=== PATIENT | female | born 1960 | race Caucasian/White ===

== ENCOUNTER 2016-11-27 03:51 | Emergency (ER) | payer OTHER ==
[~2016-11-27 03:51] MED LIST: AMOXIL500 MG PO; CALCIUM + D 6001 TAB PO; CATAPRES 0.1MG0.1 MG PO; CLONAZEPAM1 MG PO; ENDOCET 325 MG-1 TA1 PO; FLEXERIL10 MG PO; ISENTRESS400 MG PO; LAMOTRIGINE25 MG PO; LEVOTHROID0.125 MG PO; LEVOTHYROXIN0.075 M1 PO; LIORESAL 10MG T10 MG PO; LITHIUM CARBON150 MG PO; LITHIUM CARBON300 M3 PO; MELOXICAM15 MG PO; NORCO 325 MG-51 TAB PO; PERCOCET 325 MG1 TA2 PO; RISPERIDONE1 MG PO; TRUVADA 200 MG-1 TAB PO; TYLENOL #31 TAB PO; TYLENOL XSTR500 MG PO; VICODIN5-300 PO; VITAMIN B COMPL1 CAP PO; VITAMIN B12500 MCG PO; ZOVIRAX400 MG PO
[2016-11-27 04:02] VITALS: BP 152/72
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
[2016-11-27] MEDS ORDERED: CHERATUSSIN AC118 M1 PO (04:57)
[2016-11-27] MEDS ORDERED: ZITHROMAX250 M2 PO (04:57)
[2016-11-27] MEDS ORDERED: PROAIR HFA8.5 GM INH (04:57)
[2016-11-27] MEDS ORDERED: MEDROL4 M2 PO (04:57)
== END 2016-11-27 05:15 ==
LOC: ERH 03:51
DX: J40 Bronchitis, not specified as acute or chronic (principal)
CPT/HCPCS: 1263; 1395

== ENCOUNTER 2016-12-02 23:46 | Emergency (ER) | payer OTHER ==
[~2016-12-02 23:46] MED LIST changes: +CHERATUSSIN AC118 M1 PO; +MEDROL4 M2 PO; +PROAIR HFA8.5 GM INH; +ZITHROMAX250 M2 PO
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
[2016-12-03 01:15] VITALS: BP 129/60
[2016-12-03] MEDS ORDERED: VIBRAMYCIN100 MG PO (01:34)
== END 2016-12-03 01:46 ==
LOC: ERH 23:46
DX: S70.362A Insect bite (nonvenomous), left thigh, initial encounter (principal); W57.XXXA Bitten or stung by nonvenomous insect and other nonvenomous arthropods, initial encounter; Y92.9 Unspecified place or not applicable; Y93.9 Activity, unspecified

== ENCOUNTER 2016-12-10 11:20 | Inpatient (IN) | payer OTHER ==
[~2016-12-10] VITALS: Ht 165.1 cm; Wt 65.9 kg
[~2016-12-10 11:20] MED LIST changes: +VIBRAMYCIN100 MG PO
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
--- NOTE | 2016-12-10 12:15 | NUR ---
DALJIT CROWE ATTEMPTED BLOOD DRAW X 2 TO BOTH R AND L AC WITH NO SUCCESS NOTED. THIS RN OBTAINED BLOOD WORK VIA BUTTERFLY L WRIST AREA. PT DIFFICULT STICK AND MOVED DURING ALL ATTEMPTS. SST AND LAVENDAR TOP TUBES SENT TO LAB AT THIS TIME. PT AMBULATORY TO BATHROOM FOR URINE SPECIMEN.
[2016-12-10 12:28] LABS: ABSOLUTE BASOPHIL COUNT 0 /CUMM (0.0-0.2); ABSOLUTE EOSINOPHIL COUNT 0.3 /CUMM (0.0-0.7); ABSOLUTE GRANULOCYTE CT 6.6 /CUMM (1.4-6.5); ABSOLUTE LYMPH COUNT 2.1 /CUMM (1.2-3.4); ABSOLUTE MONOCYTE COUNT 0.9 /CUMM (0.10-0.60); BASOPHIL % 0.2 % (0.0-2.0); EOSINOPHIL % 2.8 % (0-5); GRANULOCYTE % 67.1 % (42.2-75.2); HEMATOCRIT 38.3 % (37-47); MEAN CORPUSCULAR HGB 31.7 PG (27.0-31.0); MEAN CORPUSCULAR VOLUME 95.8 FL (81.0-99.0); MEAN PLATELET VOLUME 9.6 FL (7.4-10.4); RBC DISTRIBUTION WIDTH 13.5 % (11.5-14.5); RED BLOOD CELL CT 3.99 /CUMM (4.20-5.40)
--- NOTE | 2016-12-10 12:28 | NUR ---
SPOKE WITH RAYO IN [employer] FOR FINGER FOOD REGULAR LUNCH TRAY
--- NOTE | 2016-12-10 12:29 | NUR ---
PATIENT FRIEND NGA ALLOWED TO VISIT WITH PATIENT AT THIS TIME.
[2016-12-10 12:46] LABS: WHITE BLOOD CELL COUNT 9.8 /CUMM (4.8-10.8)
[2016-12-10 12:47] LABS: PLATELET COUNT 176 /CUMM (130-400)
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
[2016-12-10 13:35] LABS: LITHIUM 0.4 mmol/L (0.6-1.2)
--- NOTE | 2016-12-10 13:39 | NUR ---
AIRWORTHINESS INSPECTOR NANCY AND THIS RN AT BEDSIDE TO DISCUSS WITH PATIENT PLAN FOR ADMISSION TO [facility]PS AND TO ATTEMPT TO MEDICATE PATIENT WITH ZYDIS PER ORDERS OF PSYCHIATRIST. PT REFUSING TO TAKE PO MEDS AT THIS TIME, STATING SHE WILL ONLY TAKE "LITHIUM" AND SHE WILL "ONLY TAKE MEDICATIONS PRESCRIBED" BY HER OWN PSYCHIATRIST. PT AGREES THAT SHE WILL EAT HER LUNCH, REMAIN IN ROOM AND REMAIN CALM AT THIS TIME. SITTER REMAINS AT DOOR. WILL CONTINUE TO MONITOR.
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
--- NOTE | 2016-12-10 14:35 | NUR ---
PT SLEEPING AT THIS TIME WITH REGULAR RESPIRATIONS. SITTER REMAINS AT DOOR
--- NOTE | 2016-12-10 14:43 | NUR ---
ALEXIA CRUZ IN CASE MANAGEMENT PATIENT IS 2ND IN LINE TO GO TO CPS.
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
--- NOTE | 2016-12-10 17:34 | NUR ---
NEW DINNER TRAY GLUTEN FREE PIZZA ORDERED.
--- NOTE | 2016-12-10 17:58 | NUR ---
NEW TRAY OF GLUTEN FREE PIZZA ARRIVED. PT UPSET, AGITATED, EASILY SETTLED BY LISTENING TO PT, PT AWARE THAT WE WERE NOT AWARE OF GLUTEN ALLERGY, BUT NOW IS DOCUMENTED IN CHART AND PT WILL RECIEVE ONLY GLUTEN FREE MEALS. PER CPS NURSE WILL HAVE TO CALL BACK, UNCLEAR IF NURSE IS READY FOR PT.
--- NOTE | 2016-12-10 18:35 | NUR ---
crisis gave report to CPS. CPS stated they would call for nursing report at 7pm
--- NOTE | 2016-12-10 19:00 | NUR ---
PER CPS GOING INTO REPORT WILL CALL WHEN READY.
--- NOTE | 2016-12-10 19:26 | NUR ---
REPORT TO NICOLASA ROBBINS ABLE TO GO TO CPS AT THIS TIME.
[2016-12-10 20:05] VITALS: BP 124/59
--- NOTE | 2016-12-10 21:31 | NUR ---
56 YEAR OLD FEMALE PATIENT KNOWN TO [facility] ADMITTED WITH BIPOLAR D/O, MANIC PHASE; PATIENT HAS RAPID PRESSURED SPEECH, HYPERACTIVE, PACING, UNABLE TO SIT STILL, EXTREMELY LABILE MOOD; SHE ALTERNATES BETWEEN ANGER, AND SOBBING; SHE WAS BROUGHT TO UNIT ON A PEC; PATIENT UNABLE TO GIVE COMPLETE INFORMATION DURING ADMISSION INTERVIEW; ADMISSION ORDERS REVIEWED DR. SIMPSON; DR. VALVERDE NOTIFIED FOR H&P; PATIENT HAS BILATERAL CIRCUMFERENTIAL RASHES ON HER UPPER ANKLES OF UNKNOWN ORIGIN, AND SMALL SUPERFICIAL CUT ON HER RIGHT KRISHNAMURTHY; NO SIGNS OF INFECTION; VITAL SIGNS WNL; ONE TIME ORDER OBTAINED FROM DR. SIMPSON FOR RISPERDAL 2MG, ATIVAN 2MG, BENADRYL 50MG TIMES ONE, DUE TO PATIENT REFUSING HER ZYPREXA. PATIENT CURRENTLY LYING DOWN IN BED; PER DR. RAMAN, 1:1 SITTER TO BE STARTED AT 2300 HOURS A SAFETY PRECAUTION DUE TO PATIENT JHONATAN; SITTER ORDER CAN BE REVALUATED AT NEXT SHIFT CHANGE.
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
--- NOTE | 2016-12-10 22:09 | NUR ---
PATIENT CURRENTLY LYING IN BED WITH NO ISSUES; PATIENT DENIES S/I, H/I, A/H, AND V/H AT THIS TIME; MOOD STILL LABILE AND TEARFUL, BUT SHE IS RESTING QUIETLY AT THIS TIME; DR. VALVERDE EXAMINED PATIENT'S SKIN, SMALL SCABBED AREA ON LEFT UPPER THIGH EXAMINED; PER PATIENT THIS IS WERE THE TICK BIT HER; PER DR. VALVERDE AREA STABLE, AND DOXYCYLINE CAN BE ORDERD; DR. SIMPSON UPDATED AND GAVE CLEARANCE FOR DOXYCYCLINE AND PATIENT'S SYNTHROID TO BE RESTARTED AT 0.88MG DAILY BY DR. VALVERDE.
--- NOTE | 2016-12-11 00:52 | Admission Certification ---
Admission Certification Certification Statement - As attending physician, I certify that at the time of - admission, based on clinical presentation, severity of - symptoms, need for further diagnostic testing and - therapeutic interventions, and risk of adverse outcomes - without in-hospital treatment, in my clinical assessment, - this patient requires an acute hospital stay for a minimum - of two nights or longer. I have also considered psychsocial - factors such as support system, advanced age, financial - issues, cognitive issues, and failed out-patient treatments, - past re-admission history, safety of patient, and lack of - compliance as applicable. Specific rationale supporting this admission is: bipolar disorder
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
[2016-12-11 01:44] VITALS: BP 98/54
--- NOTE | 2016-12-11 05:21 | NUR ---
PATIENT HAS BEEN SLEEPING; SHE AMBULATED TO BATHROOM WITH SITTER ASSISTANCE AT 0300, OTHERWISE HAS BEEN SLEEPING.
[2016-12-11 07:50] VITALS: BP 121/71
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
[2016-12-11 12:27] VITALS: BP 108/65
--- NOTE | 2016-12-11 12:49 | SOCIAL WORKER PROG NOTE PSYCH ---
Social Work Progress Note Progress Note SW spoke with Dr. Castellanos re: the patient and it appears that she is not appropriate for evaluation, as she has a 1:1 sitter and still presents with disorganized, paranoid, tangential flight of ideas, that are incoherent at times. SW will attempt again tomorrow, to complete social work history.
--- NOTE | 2016-12-11 12:56 | NUR ---
PT IS COMPLIANT AND COOPERATIVE WITH UNIT RULES. PT IS ON 1:1 FOR MANIC BEHAVIOR AND FALL RISK. PT HAS HAD NO BEHAVIORAL PROBLEMS THIS SHIFT. PT IS OUT IN THE COMMUNITY INTERACTING WELL WITH STAFF AND PEERS. PT IS ACTIVE IN SOME GROUPS. PT DENIES SI THOUGHTS.
[2016-12-11 15:50] VITALS: BP 111/47
--- NOTE | 2016-12-11 17:31 | PN- Medicine Consult ---
Assessment/Plan Assessment/Plan Assessment: 56-year-old female with past medical history significant for hypothyroidism and past psychiatric treatment significant for bipolar disorder, cannabis use disorder has been admitted with increasing anxiety. Plan: 1. Bipolar disorder, and cannabis use disorder, anxeity: Management as per primary psychiatric team 2. Bilateral lower extremity rash: Blotchy, macular skin eruption above ankles which is gradually and slowly fading away with conservative management. Reassurance given to the patient. 3. Hypothyroidism: Patient confirms that she was on 88 g last time which could further be confirmed from her PCP. No signs or symptoms of hyperthyroidism 4. Transaminitis: Conservative management, can be followed up by primary care physician as an outpatient. Problem List: 1. Bipolar disorder, unspecified 2. Hypothyroidism 3. Rash and nonspecific skin eruption Subjective Subjective: 56 female in no apparent distress Review of Systems Constitutional: Denies: chills, diaphoresis, fever, malaise. EENTM: Denies: blurred vision, double vision. Cardiovascular: Denies: chest pain. Respiratory: Denies: cough, short of breath. Gastrointestinal: Denies: abdominal pain, constipation. Genitourinary: Denies: dysuria, frequency. Musculoskeletal: Denies: back pain. Skin: Reports: rash (lower extremity). Neurological/Psychological: Reports: anxiety. Objective Last 24 Hrs of Vital Signs/I&O Vital Signs Date Time Temp Pulse Resp B/P B/P Pulse O2 O2 Flow FiO2 Mean Ox Delivery Rate 12/11 1550 86 111/47 12/11 1227 72 108/65 12/11 0750 96.7 78 121/71 12/11 0144 70 18 98/54 12/10 2004 97.2 73 124/59 12/10 1936 96.8 84 18 148/83 97 Room Air Intake & Output 12/11 1600 12/11 0800 12/11 0000 Intake Total Output Total Balance Patient 145 lb Weight Physical Exam General Appearance: well developed/nourished, no apparent distress, alert, awake Head: atraumatic, normal appearance Neck: normal inspection Cardiovascular: regular rate/rhythm Respiratory: normal breath sounds Abdomen: soft Extremities: no edema Skin: rash, bilateral lower extremity blanching macular petechial rash Current Medications: Current Medications Sig/Gregg Start time Last Medication Dose Route Stop Time Status Admin Acetaminophen 500 MG Q6P PRN 12/11 1045 AC 12/11 PO 1231 Albuterol Sulfate 2 PUF Q4-6 PRN PRN 12/11 1045 AC 12/11 INH 1234 Calcium/Vitamin D 500 MG DAILY 12/11 1039 AC 12/11 PO 1231 Cyanocobalamin 1,000 MCG DAILY 12/12 1000 AC PO Cyclobenzaprine HCl 10 MG Q12P PRN 12/11 1045 AC 12/11 PO 1504 Diphenhydramine HCl 50 MG AT BEDTIME PRN 12/10 2145 AC PO Diphenhydramine HCl 50 MG 12/10 DC 12/10 PO 12/10 2050 2104 Docusate Sodium 100 MG BID 12/11 1113 AC 12/11 PO 1231 Doxycycline Hyclate 100 MG BID 12/11 1112 AC 12/11 PO 12/13 1400 1232 Guaifenesin 10 ML Q4P PRN 12/11 1100 AC 12/11 PO 1728 Levothyroxine Sodium 0.088 MG DAILY AC 12/11 0700 AC 12/[address] [place] Carbonate 450 MG BID 12/11 1100 AC 12/11 PO 1231 Lorazepam 2 MG 12/10 DC 12/10 PO 12/10 Lorazepam 1 MG Q4 PRN 12/10 1500 AC 12/11 PO 1727 Melatonin 5 MG AT BEDTIME 12/10 2199 AC PO Nicotine 2 MG Q2P PRN 12/11 1115 AC PO Nicotine 7 MG DAILY 12/11 1103 AC 12/11 TOP 1232 Olanzapine 5 MG 0800 12/11 0800 CAN PO Olanzapine 10 MG AT BEDTIME 12/10 2199 CAN PO Olanzapine 5 MG Q8P PRN 12/10 1500 DC PO Risperidone 3 MG BID 12/11 2199 AC PO Risperidone 2 MG BID 12/11 1000 DC PO Risperidone 1 MG Q4P PRN 12/10 213 AC PO Risperidone 2 MG 12/10 DC 12/10 PO 12/10 2050 210 Senna 187 MG AT BEDTIME 12/11 2199 AC PO Results Last 24 Hrs Lab/Brice Results: Laboratory Tests 12/11/16 0620: Hemoglobin A1c Pending, Triglycerides 56, Cholesterol 152, LDL Cholesterol, Calc 74, HDL Cholesterol 67 H, Cholesterol/HDL Ratio 2.3, Vitamin B12 946 H Attending MD Review Statement Attending Sign Off Attending Cosign Statement: I have: examined this patient. Reason for Cont Hospitalizatn: Anxiety/bipolar disorder
--- NOTE | 2016-12-11 19:54 | NUR ---
PATIENT REPORTING LOWER BACK PAIN; DR. SIMPSON CALLED AND ORDER FOR LIDOCAINE PATCH OBTAINED.
[2016-12-11 20:10] VITALS: BP 122/58
--- NOTE | 2016-12-11 22:32 | NUR ---
Pt is present on the unit and social with peers and staff, mood is labile coupled with bright/full range affect, vital signs are stable, somatic at times and can become irritable with staff yet is redirectable easily overall via 1:1 sitter or CPS staff members.
--- NOTE | 2016-12-12 05:59 | Event Note ---
Event Note Event Note: I was called for positive urine culture for gram-positive cocci, sent from ER. UA done in ER, shows small leukocyte esterase but moderate epithelial cells, given her clinical condition and chelly is difficult to assess urinary symptoms. - Bactrim DS by mouth twice a day for 3 days
--- NOTE | 2016-12-12 06:22 | NUR ---
PATIENT HAS BEEN UP TO BATHROOM TWICE, OTHERWISE HAS BEEN IN BED ALL NIGHT; WHEN UP TO BATHROOM SHE APPEARED SLIGHTLY SEDATED AND WALKED PAST THE BATHROOM; SHE REPEATEDLY WOKE UP DURING THE NIGHT AND WENT BACK TO SLEEP.
[2016-12-12 07:51] VITALS: BP 96/46
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
[2016-12-12 12:57] VITALS: BP 113/57
--- NOTE | 2016-12-12 14:36 | NUR ---
PT REMAINS ON 1:1 STATUS FOR BEHAVIORAL ISSUES. PT HAS BEEN COMPLIANT AND COOPERATIVE. PT REMAINS LABILE AND CAN CHANGE FROM HAPPY TO IRRITATED TO TEARFUL. PT REMAINS IN BEHAVIORAL CONTROL. PT IS PRESENT ON THE UNIT AND INTERACTING WITH PEERS AND STAFF. PT IS ATTENDING GROUPS. VITALS ARE STABLE, APPETITE IS GOOD.
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
[2016-12-12 16:15] VITALS: BP 112/63
[2016-12-12 19:53] VITALS: BP 103/63
--- NOTE | 2016-12-12 21:42 | NUR ---
Pt is out in the community mood is stable hyperverbal at times, compliant and cooperative with the staff. Pt needy most of the time, Vital signs are stable appetite is good. Will continue to monitor the pt overnight.
--- NOTE | 2016-12-13 06:02 | NUR ---
RESTLESS, SLEPT FOR SEVERAL LONG INTERVALS, CAME TO DESK STATING "SHE WAS FINALLY STARTING TO REMEMBER"; GIVEN PRN BENADRYL 50MG AT 2309; SHE SEEMED STEADIER ON HER FEET WHEN OUT OF BED.
--- NOTE | 2016-12-13 07:43 | CP SOUTH PROGRESS NOTE PSYCH ---
Psych (Inpt) Progress Note Progress Note Include the following elements, when applicable: Involvement in the active treatment of the patient with behavioral observations of the patient and the patient's response to the treatment. Review of the ongoing treatment process in the context of the treatment plan. Indication of how multi-disciplinary staff members are carrying out the treatment plan. Plans for future interventions and recommendations for revision of the treatment plan. Liaison with other physicians/providers. Progress Note: I discussed this patient's progress to date, current mental status, treatment process in the context of the treatment plan, and discharge planning with staff/ team in the daily morning inpatient team meeting. I also met with the patient myself in individual session. OBJECTIVE: Current Medications Sig/Gregg Start time Last Medication Dose Route Stop Time Status Admin Acetaminophen 500 MG Q6P PRN 12/11 1045 AC 12/11 PO 1953 Albuterol Sulfate 2 PUF Q4-6 PRN PRN 12/11 1045 AC 12/12 INH 1652 Benzocaine/Menthol 1 MIGUEL Q2P PRN 12/12 1700 AC 12/12 PO 1819 Calcium/Vitamin D 500 MG DAILY 12/11 1039 AC 12/12 PO 0825 Cyanocobalamin 1,000 MCG DAILY 12/12 1000 AC 12/12 PO 0825 Cyclobenzaprine HCl 10 MG Q12P PRN 12/11 1045 AC 12/11 PO 1504 Diphenhydramine HCl 50 MG AT BEDTIME PRN 12/10 2145 AC 12/12 PO 2309 Docusate Sodium 100 MG BID 12/11 1113 AC 12/12 PO 2152 Doxycycline Hyclate 100 MG BID 12/11 1112 AC 12/12 PO 12/13 1400 2153 Guaifenesin 10 ML .STK-MED ONE 12/12 1141 DC PO 12/12 1142 Guaifenesin 10 ML Q4P PRN 12/11 1100 AC 12/12 PO 1147 Lactobacillus 1 CAP 1730 12/12 1815 AC 12/12 Acidophilus PO 1917 Levothyroxine Sodium 0.088 MG DAILY AC 12/11 0700 AC 12/13 PO 0556 Lidocaine 1 PAT Q24H 12/11 2000 AC 12/12 EXT 1920 [place] Carbonate 450 MG 0800 12/13 0800 AC PO [place] Carbonate 600 MG 2100 12/12 2100 AC 12/12 PO 2153 [place] Carbonate 450 MG BID 12/11 1100 DC 12/12 PO 0825 Lorazepam 1 MG Q4 HRS NEEDED PRN 12/12 1830 AC PO Lorazepam 1 MG Q4 PRN 12/10 1500 DC 12/12 PO 1652 Melatonin 5 MG AT BEDTIME 12/10 2199 AC 12/12 PO 2155 Nicotine 2 MG Q2P PRN 12/11 1115 AC PO Nicotine 7 MG DAILY 12/11 1103 AC 12/12 TOP 0825 Risperidone 2 MG 12/12 AC 12/12 PO 2154 Risperidone 3 MG BID 12/11 220 DC 12/12 PO 0825 Risperidone 1 MG Q4P PRN 12/10 2130 AC PO Senna 187 MG AT BEDTIME 12/11 2199 AC 12/12 PO 215 Trimethoprim/ 1 TAB BID 12/11 2199 AC 12/12 Sulfamethoxazole PO 12/14 1001 2152 Vital Signs Date Time Temp Pulse Resp B/P B/P Pulse O2 O2 Flow FiO2 Mean Ox Delivery Rate 12/12 1952 97.8 95 103/63 12/12 1615 84 112/63 12/12 1257 56 113/57 12/12 0751 97.0 89 96/46 ASSESSMENT: Chart, progress notes, labs, VS and medication list were reviewed. Patient showed adherence with scheduled doses of Risperdal and [place] last night. Vital signs within normal limts. She had no physical complaints. Denied further symptoms of blurred vision. Remained on 1:1 overnight for safety/impuslivity. Met with patient this morning. She presented with an irritable mood. Reported her mood as angry. Eye contact was appropriate. + psychomotor agitation. No psychomotor retardation. Affect was constricted, irritable, labile. Became tearful when talking about her son and his drug use. Then changed tone and started yelling about his relationship with his "nasty girl." Speech was loud, occasionally pressured and hyperverbal, however redirectable. Patient went on a brief tangent about not needing to be here and demanding to leave then switching topics and stating she can't trust men "because all they do is try to get into my pants." Process was explained to patient. She denied passive and active suicidal ideation, plans, intent. Denied homicidal ideation, auditory and visual hallucinations, paranoid thoughts. Insight and judgment remain limited. Thought process was tangential. Cognition was grossly intact. I was informed by nursing staff later today that patient signed in voluntarily and then terminated voluntary form. Termination of voluntary will on . PLAN: 1. Continue monitoring for safety, mood, ? psychosis. 2. Continue current meds. Li level scheduled tomorrow. 3. Offer prn Risperdal for agitation. 4. Dispo planning per primary team. 5. Contact Care/family for collateral.
[2016-12-13 07:57] VITALS: BP 92/58
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
[2016-12-13 12:25] VITALS: BP 114/69
--- NOTE | 2016-12-13 13:27 | NUR ---
PT REMAINS DISORGANIZED, HYPERVERBAL, TANGENTIAL. PT CAN BECOME IRRITABLE AT TIMES BUT REMAINS IN BEHAVIORAL CONTROL AND IS ABLE TO BE REDIRECTED. PT GAIT APPEARS STEADY. PT MOOD CAN BE LABILE. PT DENIES SI AT THIS TIME, NO COMPLAINTS OFFERED. PT IS PRESENT IN THE COMMUNITY AND INTERACTING WITH PEERS AND STAFF. PT IS ATTENDING SOME GROUPS. VITALS ARE STABLE, APPETITE IS GOOD.
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
[2016-12-13 16:35] VITALS: BP 106/62
[2016-12-13 20:27] VITALS: BP 140/57
[2016-12-14 07:45] VITALS: BP 105/59
--- NOTE | 2016-12-14 07:48 | IP INCIDENTAL NOTE PSYCH ---
Incidental Note Notation: Called [facility] to speak to patient's outpatient Stephanie SALOMON. My call was directed to Dr. Iyer who informed me that Stephanie was hired only for a temp position and is no longer with [facility]. He directed my phone call to clinician Rachel. was left for Rachel requesting a return call to obtain collateral information.
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
[2016-12-14 12:27] VITALS: BP 112/63
--- NOTE | 2016-12-14 12:39 | NUR ---
PT IS PRESENT WITHIN THE COMMUNITY AND ONLY ABLE TO TOLERATE GROUPS INTERMITTENTLY, IRRITABLE & DEMANDING WITH STAFF, LABILE, IN PLANNING MEETING REPORTED + SLEEP/MOOD AND WORKING TOWARDS "FAMILY MEETING", PT'S BEHAVIOR IS CONGRUENT WITH HYPOMANIA AND MUST BE REDIRECTED OFTEN BECOMES OVERWHELMED EASILY, DISORGANIZED AND TANGENTIAL, 1:1 REMAINS FOR SAFETY.
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
[2016-12-14 16:00] VITALS: BP 125/80
[2016-12-14 20:04] VITALS: BP 124/75
--- NOTE | 2016-12-14 21:48 | NUR ---
PT IS VISIBLE ON UNIT, SOCIALIZING WITH PEERS AND VISITING WITH FAMILY THROUHGOUT EVENING. COOPERATIVE AND COMPLIANT WITH STAFF. ATTENDED WRAP UP MEETING. NO COMPLAINTS OR SI REPORTED. PT REMAINS ON 1:1 SITTER FOR SAFETY. PT HAS A STABLE MOOD AND FULL RANGE AFFECT.
--- NOTE | 2016-12-15 00:21 | NUR ---
OOBX1 TO BATHROOM AND TO GET WATER. NO COMPLAINTS OFFERED, RETURNED TO BED, SITTER WITH PATIENT AT ALL TIMES.
--- NOTE | 2016-12-15 02:08 | NUR ---
OOB X1 TO BATHROOM AND RETURNED TO BED WITHOUT PROBLEM. SITTER WITH PATIENT.
--- NOTE | 2016-12-15 03:59 | NUR ---
REMAINS ONE 1:1 OBSERVATION. AWAKE X2 OVERNIGHT ATTEMPTING TO ENGAGE WITH HER SITTER. INSTRUCTED TO RETURN TO BED. SLEPT WELL
--- NOTE | 2016-12-15 04:12 | NUR ---
SLEEPING QUIETLY AT PRESENT, SITTER PRESENT.
[2016-12-15 07:57] VITALS: BP 116/53
[2016-12-15 12:21] VITALS: BP 114/73
--- NOTE | 2016-12-15 13:51 | NUR ---
PT IS PRESENT WITHIN THE MILIEU, ITNERACTING WITH PEERS/STAFF MEMBERS APPROPRIATELY. PT IS NO LONGER ON ONE TO ONE. PLESEANT, COOPERATIVE AND COMPLIANT. PT HAS BEEN ATTENDING GROUPS ALL MORNING. PT RECENTLY MET WITH PT ADVOCATE AND IS HAPPY SHE WAS GIVEN THIS OPPROTUNITY AFTER ASKING FOR " A COUPLE OF DAYS". VS ARE STABLE AND DENIES ANY SI/HI TO THIS MHW.
--- NOTE | 2016-12-15 13:59 | SOCIAL WORKER PROG NOTE PSYCH ---
Social Work Progress Note Progress Note Pt indicates she did sign in voluntarily to the hospital. She was agreeable to start IOP, 'I love IOP", pt states she was losing her patience with being a patient and wanted to find out when she would be discharged. [facility] transplant case manager Cara was expected to come and talk with her, and during our meeting the patient animal care technician arrived to meet her as well. Pt is aware that she needs to call [facility] and [facility] and has the info. We only touched on how the patient can be safe and a better advocate for herself upon discharge.
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
[2016-12-15 16:15] VITALS: BP 126/72
[2016-12-15 20:22] VITALS: BP 123/84
--- NOTE | 2016-12-15 20:50 | NUR ---
PT IS OFTEN IN MILIE[place], INTERACTING TO A GREAT EXTENT WITH OTHERS. MOSTLY COMPLIANT WITH UNIT RULES, BUT DOES HAVE A ISSUE FOLLOWING THEM AT TIMES. PT APPEARS TO BE AT TIMES INAPPROPRIATE WITH HER VISITORS. NEEDS TO BE AT TIMES RE-DIRECTED. MOOD IS STABLE, AFFECT APPEARS BRIGHT, COMMUNICATION IS ORGANIZED BUT AT TIMES HYPERVERBAL BUT NORMAL IN ALL RESPECTS, AND APPETITE IS NORMAL. PT DENIES SI AT THIS TIME.
[2016-12-16 07:21] VITALS: BP 111/69
--- NOTE | 2016-12-16 10:00 | CP SOUTH PROGRESS NOTE PSYCH ---
Psych (Inpt) Progress Note Progress Note Include the following elements, when applicable: Involvement in the active treatment of the patient with behavioral observations of the patient and the patient's response to the treatment. Review of the ongoing treatment process in the context of the treatment plan. Indication of how multi-disciplinary staff members are carrying out the treatment plan. Plans for future interventions and recommendations for revision of the treatment plan. Liaison with other physicians/providers. Progress Note: I discussed this patient's progress to date, current mental status, treatment process in the context of the treatment plan, and discharge planning with staff/ team in the daily morning inpatient team meeting. I also met with the patient myself in individual session. OBJECTIVE: Current Medications Sig/Gregg Start time Last Medication Dose Route Stop Time Status Admin Acetaminophen 500 MG Q6P PRN 12/11 1045 AC 12/11 PO 1953 Albuterol Sulfate 2 PUF Q4-6 PRN PRN 12/11 1045 AC 12/16 INH 0215 Benzocaine/Menthol 1 MIGUEL Q2P PRN 12/12 1700 AC 12/15 PO 2225 Calcium/Vitamin D 500 MG DAILY 12/11 1039 AC 12/16 PO 0804 Cyanocobalamin 1,000 MCG DAILY 12/12 1000 AC 12/16 PO 0804 Cyclobenzaprine HCl 10 MG Q12P PRN 12/11 1045 AC 12/11 PO 1504 Diphenhydramine HCl 50 MG AT BEDTIME PRN 12/10 2145 AC 12/16 PO 0219 Docusate Sodium 100 MG BID 12/11 1113 AC 12/16 PO 0804 Guaifenesin 10 ML .STK-MED ONE 12/15 2335 DC PO 12/15 2336 Guaifenesin 10 ML Q4P PRN 12/11 1100 AC 12/15 PO 2341 Lactobacillus 1 CAP 1730 12/12 1815 AC 12/15 Acidophilus PO 1706 Levothyroxine Sodium 0.088 MG DAILY AC 12/11 0700 AC 12/16 PO 0608 Lidocaine 1 PAT Q24H 12/11 2000 AC 12/15 EXT 2045 [place] Carbonate 450 MG 0800 12/13 0800 AC 12/16 PO 0804 [place] Carbonate 600 MG 2100 12/12 2100 AC 12/15 PO 2044 Lorazepam 0.5 MG Q4P PRN 12/16 0730 AC PO 12/19 1829 Lorazepam 1 MG Q4 HRS NEEDED PRN 12/12 1830 DC 12/16 PO 0523 Melatonin 5 MG AT BEDTIME 12/10 2200 AC 12/15 PO 2224 Nicotine 2 MG Q2P PRN 12/11 1115 AC PO Nicotine 7 MG DAILY 12/11 1103 AC 12/15 TOP 0907 Risperidone 2 MG 2200 12/12 2200 AC 12/15 PO 2224 Risperidone 1 MG Q4P PRN 12/10 2130 AC PO Senna 187 MG AT BEDTIME 12/11 2199 AC 12/15 PO 2224 Laboratory Tests 12/15 05 Toxicology [place] (0.6 - 1.2 mmol/L) 0.8 Vital Signs Date Time Temp Pulse Resp B/P B/P Pulse O2 O2 Flow FiO2 Mean Ox Delivery Rate 12/16 720 97.8 75 111/69 12/15 2021 98.7 89 123/84 12/15 1615 82 126/72 12/15 1221 94 114/73 ASSESSMENT: Chart, progress notes, labs, VS and medication list were reviewed. Reviewed patient's tx progress to date with nursing staff who reported the patient's mood is mildy labile and likely influenced by overstimulation in milieu; overall mood is much improved. She has been adherent to scheduled medications. No reports of SI, HI, AVH or PI. Termination of voluntary expires today. I met with the patient this morning, on the date of discharge. She presented alert and oriented to person, place, time and situation. Speech was normal in rate, tone, and volume; non-pressured. Affect was overall constricted and occasionally tearful, but appropriate, when talking about her father whom she loves and him being in a jail. Reported anxiety of 5/10 (10 being the worst) and depression/sadness of 2/10 (10 being the worst). She denied feeling hopeless, helpless, worthless and guilty. She denied active and passive suicidal ideation, plans and intent. She denied homicidal ideation, auditory and visual hallucinations. She stated and also believed she will not harm herself or others. Gave protective factors of "my son" and "my dad." There was no evidence of paranoia or diana delusions. She reported sleep was fair and appetite was stable. Reported energy level was good. Thought process was linear and goal- directed to complete work in her home and follow-up with [facility] level of care and [facility]. She reported tolerating all medications well and denied untoward effects. She reported feeling safe and ready for discharge. PLAN: 1. Discharge to home and self-care. 2. F/u with IOP on 12/19/16 at 12:45PM. 3. F/u with [facility] and [facility] for counseling. 4. F/u with clin application specialist, Dr. Saunders, on 03/10/17 at 2:45PM for thyroid management. 5. Abstain from all substances. 6. In the event of an emergency, call 911/go to nearest emergency department. Patient verbalized understanding of instructions. 7. All discharge prescriptions were e-prescribed to [facility] today.
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
[2016-12-16] MEDS ORDERED: NICOTINE PATCH1 EAC1 TOP (10:23)
[2016-12-16] MEDS ORDERED: RISPERDAL2 M1 PO (10:31)
[2016-12-16] MEDS ORDERED: LITHIUM CARBON150 M1 PO (10:34)
[2016-12-16] MEDS ORDERED: LITHIUM CARBON300 M4 PO (10:35)
[2016-12-16] MEDS ORDERED: DOCUSATE SODIU100 M3 PO (10:36)
[2016-12-16] MEDS ORDERED: PROBIOTIC & AC1 EACH PO (10:37)
[2016-12-16] MEDS ORDERED: SENNA-TIME S T1 EACH PO (10:37)
[2016-12-16] MEDS ORDERED: SYNTHROID88 MCG PO (10:39)
[2016-12-16] MEDS ORDERED: LIDODERM1 EACH EXT (10:42)
[2016-12-16] MEDS ORDERED: MELATONIN5 M7 PO (10:45)
--- NOTE | 2016-12-16 11:43 | NUR ---
will be discharged today to [facility] with follow up at [facility]. Mood is stable , full range of affect. Denied thoughts of self harm when asked. given education on bipolar disorder.
[2016-12-16 12:30] VITALS: BP 126/66
--- NOTE | 2016-12-16 13:12 | DISCHARGE SUMMARY REPORT-PSYCH ---
Visit Information Visit Dates/Diagnosis' Admission Date: 12/10/16 Discharge Date: 12/16/16 Reason for Admission: Worsening chelly and ? psychosis. Psy Discharge Primary Diag: Bipolar disorder, current episode mixed. Psy Discharge Secondary Diag: PTSD; Cannabis use disorder, severe; Alcohol use disorder, in remission; sciatica; Diverticulitis; osteopenia; hypothyroidism; ovarian cysts. Hospital Course Significant Lab Findings: Lab ALT 65 U/L H 12/10/16 1212 AST 76 U/L H 12/10/16 1212 Free T4 1.68 ng/dL 12/10/16 1212 HDL Cholesterol 67 mg/dL H 12/11/16 0620 TSH 0.354 uIU/mL 12/10/16 1212 Thyroxine Binding Indx 38.7 % UPTAKE 12/10/16 1212 Vitamin B12 946 pg/mL H 12/11/16 0620 [place] 0.4 mmol/L L 12/10/16 1212 [place] 0.8 mmol/L 12/15/16 0532 Urine Cannabis Screen > 80.00 NG/ML H 12/10/16 1224 Urine Opiates Screen > 4000.00 NG/ML H 12/10/16 1224 Course Complications: None. Consultations: The patient was seen for admission history and physical by Dr. Valentina Young. On evaluation, patient reported recent tick bite and removal. Doxycycline course was completed. Patient was also started on brief course of Bactrim DS twice daily, which was completed for UTI. Please see MD note for additional information. Allergies: Coded Allergies: trazodone (Severe, ANAPHYLAXIS 10/27/15) lamotrigine (From LAMICTAL) (Mild, RASH 10/27/15) gluten (i will per pt 12/10/16) divalproex sodium (HAIR LOSS AND EXTREME HUNGER & IMEDIATE WEIGHT GAIN PER PT ) haloperidol (LOCKED JAW 10/27/15) Hospital Course/TX Response: The patient was monitored on the unit for safety, suicidal ideation, mood and ? psychosis. She participated in multimodal treatments on the unit. On admission to [facility], the patient's [place] level of subtherapeutic at 0.4mmol/L. Risperdal 3mg twice daily was started for mood stabilization and ? psychosis. At this dose, the patient complained of blurred vision. Risperdal was immediately decreased to 2mg at bedtime. Patient was agreeable to increasing [place] from 450mg twice daily to 450mg QAM and 600mg QPM for mood stabilization. Melatonin 5mg was started at bedtime for sleep induction/insomnia. Home medications for hypothyroidism and constipation were restarted. The patient tolerated all medications well and denied untoward medication effects. During the hospital course, the patient's mood and affect improved. She consistently denied suicidal ideation, homicidal ideation, auditory, visual hallucinations, paranoia and delusions. She was agreeable to having phone conferences with her son, Yo, and his , Kanchan. Another phone conference was held with the patient's sister, Rachel. During all phone conferences, the patient's level of safety, treatment progress, and discharge planning were reviewed and discussed. Kanchan expressed primary concerns surrounding Rose Marie's nonadherence to medications and poor sleep. During phone conference with the patient's son Yo, he made inappropriate comments towards the patient's mental illness. Poor boundaries appeared to be in place during conference and therefore , conference was ended. A phone conference with the patient's sister, Rachel, was subsequently held. Rachel appeared to be a supportive influence in the patient's life. The patient was in favor of discharge plan to f/u at [facility] for continued psychiatric support; to follow-up with [facility] case management specialist for continued suport. On the date of discharge, 12/16/16, the patient presented alert and oriented to person, place, time and situation. Speech was normal in rate, tone, and volume; non-pressured. Affect was overall constricted and occasionally tearful, but appropriate, when talking about her father whom she loves and lives in a intermediate. Reported anxiety of 5/10 (10 being the worst) and depression/sadness of 2/ 10 (10 being the worst). She denied feeling hopeless, helpless, worthless and guilty. She denied active and passive suicidal ideation, plans and intent. She denied homicidal ideation, auditory and visual hallucinations. She stated and also believed she will not harm herself or others. Gave protective factors of "my son" and "my dad." There was no evidence of paranoia or diana delusions. She reported sleep was fair and appetite was stable. Reported energy level was good. Thought process was linear and goal-directed to complete work in her home and follow-up with [facility] level of care, [facility], and her Care case management specialist. She reported tolerating all medications well and denied untoward effects. She reported feeling safe and ready for discharge. Discharge HBIPS - Tobacco Use Treatment Offered Post DC Medications Offered: Script Given-See Med List Post DC Tobacco Treatment Plan: [facility]ie Tobacco Tx Pgm Program Appt Date: 12/28/16 Program Appt Time: 1600 - EtOH/Drug Use D/O Treatment Offered Post DC Medications Offered: Med Not Indicated for D/O Post DC EtOH/SubAbuse TX Plan: [facility]ie SubAbuse/Dual IOP Program Appt Date: 12/19/16 Program Appt Time: 1245 Metabolic Screening - Screen if on a Neuroleptic Medication - Metabolic screening should include: - Blood Pressure, BMI, Glucose or Hgb A1c, & a - Lipid profile from within the past 365 days. Metabolic Screening () Not Applicable, patient not on a neuroleptic. OR (X) Patient on a neuroleptic(s) . Enter below results for Glucose or Hemoglobin A1C, and lipid panel if obtained during the last 365 days. BMI: 24.100 Blood Pressure: 126/66 Laboratory Results (If applicable): Lab Cholesterol 152 MG/DL 12/11/16 0620 Cholesterol/HDL Ratio 2.3 % 12/11/16 0620 HDL Cholesterol 67 mg/dL H 12/11/16 0620 Hemoglobin A1c 5.1 % 12/11/16 0620 LDL Cholesterol, Calc 74 mg/dL 12/11/16 0620 Triglycerides 56 mg/dL 12/11/16 0620 Discharge Instructions General Discharge Information Discharge Medications: Discharge Medications- (Dose, route, freq, indication): START taking these NEW Home Medications: Nicotine (Nicotine Dose: On the skin, DAILY for Qty: 14 Sent to Patch) 7 MG/24 HOUR 7 Mill[place]ram TOBACCO CESSATION Refills: 0 Pharm 1 PATCH.TD24 APPLY 1 PATCH TOPICALLY QAM AND REMOVE BEFORE HS. Risperidone Dose: ORAL, Every night for Qty: 14 Sent to (Risperdal) 2 MG 1 Tablet CLEAR THOUGHTS Refills: 0 Pharm 1 TABLET TAKE 1 TAB PO AT BEDTIME. [place] Carbonate Dose: ORAL, Every Morning for Qty: 14 Sent to ([place] Carbonate) 450 Milligram MOOD STABILIZATION Refills: 0 Pharm 1 150 MG CAPSULE TAKE 1 CAP (150MG) PO + 1 CAP (300MG) QAM (FOR A TOTAL OF 450MG). [place] Carbonate Dose: ORAL, 2100 for MOOD Qty: 42 Sent to ([place] Carbonate) 600 Milligram STABILIZATION Refills: 0 Pharm 1 300 MG CAPSULE TAKE 2 CAPS (600MG) PO EVERY NIGHT. Docusate Sodium Dose: ORAL, TWICE DAILY for Qty: 28 Sent to (Docusate Sodium) 100 Milligram CONSTIPATION Refills: 0 Pharm 1 100 MG CAPSULE TAKE 1 CAP PO BID. Sennosides/Docusate Dose: ORAL, AT BEDTIME for Qty: 14 Sent to Sodium (Senna-Time S 187 Milligram CONSTIPATION Refills: 0 Pharm 1 Tablet) 8.6 MG-50 MG TAKE 1 TAB PO AT BEDTIME. TABLET Lactobac Cmb #3/Fos/ Dose: ORAL, 1730 for GI SUPPORT Qty: 14 Sent to Pantethine 1 Capsule TAKE 1 CAP PO BEFORE Refills: 0 Pharm 1 (Probiotic & DINNER. Acidophilus Cap) 300MM-250 CAPSULE Levothyroxine Sodium Dose: ORAL, DAILY BEFORE Qty: 14 Sent to (Synthroid) 88 MCG 1 Tablet BREAKFAST for Refills: 0 Pharm 1 TABLET HYPOTHYROIDISM TAKE 1 TAB PO DAILY AC. Lidocaine (Lidoderm) Dose: ON SKIN, Q24H for PAIN Qty: 14 Sent to 5 % ADH..PATCH 1 Patch APPLY 1 PATCH EXT TO Refills: 0 Pharm 1 AFFECTED AREA Q24 HOURS. KEEP ON FOR 12 HOURS, THEN REMOVE FOR 12 HOURS. Melatonin Dose: ORAL, AT BEDTIME for Qty: 14 Sent to (Melatonin) 5 MG 5 Milligram SLEEP INDUCTION/INSOMNIA Refills: 0 Pharm 1 TABLET TAKE 1 TAB PO AT BEDTIME. CONTINUE taking these Home Medications: Vitamin B Complex Dose: ORAL, DAILY for (Vitamin B Complex) 1 1 Capsule SUPPLEMENT CAP CAP PER PT Calcium/Vitamin D Dose: ORAL, DAILY for (Calcium + D) 600 MG/200 1 Tablet SUPPLEMENT IU TAB PER PT Albuterol Sulfate Dose: Inhale through mouth, (Proair Hfa) 90 MCG 2 Puff EVERY 4-6 HOURS HFA.AER.AD NEEDED as needed for DYSPNEA DISPENSE WITH SPACER STOP taking these DISCONTINUED Home Medications: Levothyroxine Sodium Dose: ORAL, DAILY for THYROID (Levothroid) 0.125 MG TAB 0.5 Tablet Reason Stopped: Per Doctor Decision Clonazepam (Clonazepam) 1 MG Dose: ORAL, TWICE DAILY for ANXIETY TAB 1 Tablet Reason Stopped: Per Doctor Decision Acetaminophen/Hydrocodone Bi Dose: ORAL, as needed for PAIN ([place] 325 MG-5 MG) 1 TAB TAB 1 Tablet Reason Stopped: Per Doctor Decision HYDROCODONE/ACETAMINOPHEN Dose: ORAL, Q6H as needed for pain (Hydrocodon-Acetaminophen 5- 1 Tablet Reason Stopped: Per Doctor 325) 1 TAB TAB Decision 1: [id number], [address], [place], [place] [id number] Your Preferred Pharmacy [id number] [address] [place] [address] Multiple Neuroleptics: ([X]) Not Applicable OR Document below three failed attempts at monotherapy, or a plan to taper to monotherapy, or augmentation of Clozapine. () Patient's Diet: Regular. Patient's Activity: No restrictions. DC Disposition: Patient to return to home and self care. Recommendations: The patient was advised to please take her medications as prescribed. She was advised to abstain from all substances; to attend daily AA meetings and obtain a sponsor for support in sobriety. She was advised to follow-up with all scheduled outpatient appointments. She was advised that in the event of an emergency to call 911/go to nearest emergency department. Patient verbalized understanding of all instructions. Referred To: Post Discharge Referrals Provider Referral Service Date: 12/19/16 [facility] Notes: [facility] Intensive Outpatient [address] [place] [address] Intake 12/19/16 at 12:45pm Provider Referral Service Date: 12/19/16 Referred To: [[facility]] Notes: [facility] [address], [place] Meet with counselor in the afternoon. Provider Referral Service Date: 03/10/17 Referred To: [Dr. Saunders Consumer Education Specialist ] Notes: Dr. Chip [facility] [address] [place] [address] Appt. 03/10/17 at 2:45pm (They have you on a cancellation list for sooner appointment - call to see if any cancellations weekly). Copies To: Dr. Shree Saunders; [facility]; [facility]
== END 2016-12-16 13:54 | DRG 753 ==
LOC: ERH 11:20 → CP SOUTH 13:26 → ERHI 13:26 → CP SOUTH 19:43 → ENRESERV 19:48 → CP SOUTH 12-14 08:30 → ENPENDDIS 12-16 14:00
PROVIDERS: Emergency Medicine; Student in an Organized Health Care Education/Training Program; ADMIT Psychiatry & Neurology Addiction Medicine
DX: F31.60 Bipolar disorder, current episode mixed, unspecified (principal); F43.10 Post-traumatic stress disorder, unspecified; F12.20 Cannabis dependence, uncomplicated; F10.21 Alcohol dependence, in remission; M54.30 Sciatica, unspecified side; M85.80 Other specified disorders of bone density and structure, unspecified site; E03.9 Hypothyroidism, unspecified; N83.209 Unspecified ovarian cyst, unspecified side
CPT/HCPCS: 36415; 80307; 81001; 84481; 87086; 87147; 93005; 93010; G0480; J3490

== ENCOUNTER 2016-12-20 17:57 | Inpatient (IN) | payer OTHER ==
[~2016-12-20] VITALS: Ht 162.6 cm; Wt 63.6 kg
[~2016-12-20 17:57] MED LIST changes: +DOCUSATE SODIU100 M3 PO; +LIDODERM1 EACH EXT; +LITHIUM CARBON150 M1 PO; +LITHIUM CARBON300 M4 PO; +MELATONIN5 M7 PO; +NICOTINE PATCH1 EAC1 TOP; +PROBIOTIC & AC1 EACH PO; +RISPERDAL2 M1 PO; +SENNA-TIME S T1 EACH PO; +SYNTHROID88 MCG PO
--- NOTE | 2016-12-20 18:00 | NUR ---
PT BIBA ON PEER FOR ODD/AGGRESSIVE BEHAVIOR. PT ANGRY AND BELIGERANT WITH STAFF AND WAS REFUSING TO REMOVE JEWELRY. PT ATTEMPTED TO GIVE URINE SAMPLE, BUT WAS UNABLE TO. PT TALKING LOUDLY, TANGENTIAL SPEECH. SECURITY AT BEDSIDE FOR WANDING PT CHANGED INTO BLUE SCRUBS
--- NOTE | 2016-12-20 18:01 | ED PSYCHIATRIC COMPLAINT ---
History of Present Illness General Chief Complaint: Psychiatric Related Complaint Stated Complaint: BIBA FOR PSYCH Allergies Coded Allergies: trazodone (Severe, ANAPHYLAXIS 10/27/15) lamotrigine (From LAMICTAL) (Mild, RASH 10/27/15) gluten (i will per pt 12/10/16) divalproex sodium (HAIR LOSS AND EXTREME HUNGER & IMEDIATE WEIGHT GAIN PER PT ) haloperidol (LOCKED JAW 10/27/15) Reconcile Medications Albuterol Sulfate (Proair Hfa) 90 MCG HFA.AER.AD 2 PUF INH Q4-6 PRN PRN DYSPNEA DISPENSE WITH SPACER Calcium/Vitamin D (Calcium + D) 600 MG/200 IU TAB 1 TAB PO DAILY SUPPLEMENT ( Reported) Docusate Sodium 100 MG CAPSULE 100 MG PO BID CONSTIPATION TAKE 1 CAP PO BID. Lactobac Cmb #3/Fos/Pantethine (Probiotic & Acidophilus Cap) 300MM-250 CAPSULE 1 CAP PO 1730 GI SUPPORT TAKE 1 CAP PO BEFORE DINNER. Levothyroxine Sodium (Synthroid) 88 MCG TABLET 1 TAB PO DAILY AC HYPOTHYROIDISM TAKE 1 TAB PO DAILY AC. Lidocaine (Lidoderm) 5 % ADH..PATCH 1 PAT EXT Q24H PAIN APPLY 1 PATCH EXT TO AFFECTED AREA Q24 HOURS. KEEP ON FOR 12 HOURS, THEN REMOVE FOR 12 HOURS. [place] Carbonate 150 MG CAPSULE 450 MG PO QAM MOOD STABILIZATION TAKE 1 CAP (150MG) PO + 1 CAP (300MG) QAM (FOR A TOTAL OF 450MG). [place] Carbonate 300 MG CAPSULE 600 MG PO 2100 MOOD STABILIZATION TAKE 2 CAPS (600MG) PO EVERY NIGHT. Melatonin 5 MG TABLET 5 MG PO AT BEDTIME SLEEP INDUCTION/INSOMNIA TAKE 1 TAB PO AT BEDTIME. Nicotine (Nicotine Patch) 7 MG/24 HOUR PATCH.TD24 7 MG TOP DAILY TOBACCO CESSATION APPLY 1 PATCH TOPICALLY QAM AND REMOVE BEFORE HS. Risperidone (Risperdal) 2 MG TABLET 1 TAB PO QPM CLEAR THOUGHTS TAKE 1 TAB PO AT BEDTIME. Sennosides/Docusate Sodium (Senna-Time S Tablet) 8.6 MG-50 MG TABLET 187 MG PO AT BEDTIME CONSTIPATION TAKE 1 TAB PO AT BEDTIME. 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: CYST ON OVARIEES History of MRSA: Yes History of VRE: No History of CDIFF: No Tetanus Vaccine: 06/27/13 Surgical History Surgical History: non-contributory Psychosocial History Who do you live with Father What is your primary language Kyrgyz Family History Family History, If Any: FATHER FH: heart failure MOTHER FH: leukemia Progress Plan of Care: Orders Procedure Date/time Status TSH REFLEX 12/20 180 Active LITHIUM 12/20 1801 Active URINE DRUG SCREEN FOR ER ONLY 12/20 1800 Active URINALYSIS 12/20 1800 Active ETHANOL 12/20 1800 Active COMPREHENSIVE METABOLIC PANEL 12/20 1800 Active CBC WITHOUT DIFFERENTIAL 12/20 1800 Active ED CRISIS PSYCH CONSULT 12/20 1800 Active Departure Departure Condition: Stable Referrals: TIA WILEY MD (PCP/Family) Departure Forms: Customer Survey General Discharge Information
--- NOTE | 2016-12-20 18:10 | ED PSYCHIATRIC COMPLAINT ---
See Addendum History of Present Illness General Chief Complaint: Psychiatric Related Complaint Stated Complaint: BIBA FOR PSYCH Source: patient, EMS, police Exam Limitations: clinical condition, confusion, poor historian, physical impairment Vital Signs & Intake/Output Vital Signs & Intake/Output Patient placed in a quiet room. She was signed out to Dr. Sanchez at 7 PM. Allergies Coded Allergies: trazodone (Severe, ANAPHYLAXIS 10/27/15) lamotrigine (From LAMICTAL) (Mild, RASH 10/27/15) gluten (i will per pt 12/10/16) divalproex sodium (HAIR LOSS AND EXTREME HUNGER & IMEDIATE WEIGHT GAIN PER PT ) haloperidol (LOCKED JAW 10/27/15) Reconcile Medications Albuterol Sulfate (Proair Hfa) 90 MCG HFA.AER.AD 2 PUF INH Q4-6 PRN PRN DYSPNEA DISPENSE WITH SPACER Calcium/Vitamin D (Calcium + D) 600 MG/200 IU TAB 1 TAB PO DAILY SUPPLEMENT ( Reported) Docusate Sodium 100 MG CAPSULE 100 MG PO BID CONSTIPATION TAKE 1 CAP PO BID. Lactobac Cmb #3/Fos/Pantethine (Probiotic & Acidophilus Cap) 300MM-250 CAPSULE 1 CAP PO 1730 GI SUPPORT TAKE 1 CAP PO BEFORE DINNER. Levothyroxine Sodium (Synthroid) 88 MCG TABLET 1 TAB PO DAILY AC HYPOTHYROIDISM TAKE 1 TAB PO DAILY AC. Lidocaine (Lidoderm) 5 % ADH..PATCH 1 PAT EXT Q24H PAIN APPLY 1 PATCH EXT TO AFFECTED AREA Q24 HOURS. KEEP ON FOR 12 HOURS, THEN REMOVE FOR 12 HOURS. [place] Carbonate 150 MG CAPSULE 450 MG PO QAM MOOD STABILIZATION TAKE 1 CAP (150MG) PO + 1 CAP (300MG) QAM (FOR A TOTAL OF 450MG). [place] Carbonate 300 MG CAPSULE 600 MG PO 2100 MOOD STABILIZATION TAKE 2 CAPS (600MG) PO EVERY NIGHT. Melatonin 5 MG TABLET 5 MG PO AT BEDTIME SLEEP INDUCTION/INSOMNIA TAKE 1 TAB PO AT BEDTIME. Nicotine (Nicotine Patch) 7 MG/24 HOUR PATCH.TD24 7 MG TOP DAILY TOBACCO CESSATION APPLY 1 PATCH TOPICALLY QAM AND REMOVE BEFORE HS. Risperidone (Risperdal) 2 MG TABLET 1 TAB PO QPM CLEAR THOUGHTS TAKE 1 TAB PO AT BEDTIME. Sennosides/Docusate Sodium (Senna-Time S Tablet) 8.6 MG-50 MG TABLET 187 MG PO AT BEDTIME CONSTIPATION TAKE 1 TAB PO AT BEDTIME. Vitamin B Complex 1 CAP CAP 1 CAP PO DAILY SUPPLEMENT (Reported) Triage Nurses Notes Reviewed? yes Onset: Abrupt Duration: unknown duration Timing: unknown HPI: 12/20/16 6:10 PM 56-year-old female presents to the emergency department for the delusions. The patient was apparently found in traffic trying to flag down police. She says that people are out to get her and kill and her whole family. She also says that someone has put heroin on her toothpaste. 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 The onset of the symptoms have been abrupt, the duration is really unknown, the severity is significant as her symptoms required her to come to the emergency department for care by EMS and with police. She is mildly agitated but is able to be redirected. She was placed into a safe room. Labs were ordered and a crisis consultation was requested (CHRISTEN MABRY DO) Past History Travel History Traveled to [place] past 21 day No Medical History Any Pertinent Medical History? 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 No (CHRISTEN MABRY DO) Review of Systems Review of Systems Constitutional: Denies: fever. EENTM: Denies: visual changes. Respiratory: Denies: short of breath. Cardiovascular: Denies: chest pain. GI: Denies: abdominal pain. Genitourinary: Reports: no symptoms. Musculoskeletal: Reports: no symptoms. Skin: Reports: no symptoms. Neurological/Psychological: Reports: anxiety. Hematologic/Endocrine: Denies: bruising, bleeding. (CHRISTEN MABRY DO) Physical Exam Physical Exam General Appearance: alert, awake, anxious, moderate distress Head: atraumatic, normal appearance Eyes: Bilateral: normal appearance, PERRL, EOMI. Ears, Nose, Throat: normal ENT inspection Neck: normal inspection, supple, full range of motion Respiratory: normal breath sounds, chest non-tender, no respiratory distress Cardiovascular: regular rate/rhythm Gastrointestinal: non-tender Extremities: normal range of motion Neurological/Psychiatric: no motor/sensory deficits, awake, agitated, alert, anxious Appearance/Memory/Insight: disheveled Behavoir/Eye Contact/Speech: uncooperative Thoughts/Hallucinations: delusions, flight of ideas Skin: intact, normal color, warm/dry SAD PERSONS SAD PERSONS Response Value Age <19 or >45 years? yes 1 Previous Attempts/Psych Care yes 1 Rational Thinking Loss? yes 2 Social Support? has support 0 Total 4 SAD PERSONS Done? yes, patient not suicidal (CHRISTEN MABRY DO) Progress Differential Diagnosis: drug intoxication, drug overdose, drug withdrawal, chelly , psychosis, alcohol intoxication Plan of Care: Orders Procedure Date/time Status Regular Diet 12/21 B Active Lab Add-on Test 12/20 193 Active TSH REFLEX 12/20 180 Complete LITHIUM 12/20 180 Complete URINE DRUG SCREEN FOR ER ONLY 12/20 1800 Complete URINALYSIS 12/20 1800 Complete TROPONIN LEVEL 12/20 1800 Complete ETHANOL 12/20 1800 Complete COMPREHENSIVE METABOLIC PANEL 12/20 1800 Complete CBC WITHOUT DIFFERENTIAL 12/20 1800 Complete ED CRISIS PSYCH CONSULT 12/20 1800 Active Current Medications Sig/Gregg Start time Last Medication Dose Stop Time Status Admin Olanzapine 0 .STK-MED ONE 12/20 1841 CAN (ZYDIS (Orally disintegrating tabs)) Risperidone 2 MG ONCE ONE 12/20 1830 CAN (Risperidone) 12/20 183 Haloperidol 0 .STK-MED ONE 12/20 1825 CAN (Haldol) Laboratory Tests 12/20/162026: TSH &T3 &Free T4 Intrp 0.800, Serum Alcohol < 10.0 12/20/162026: Anion Gap 13, Estimated GFR > 60, BUN/Creatinine Ratio 17.1, Glucose 99, Calcium 10.1, Total Bilirubin 0.6, AST 34, ALT 49, Alkaline Phosphatase 76, Troponin I < 0.01, Total Protein 7.0, Albumin 4.4, Globulin 2.6, Albumin/Globulin Ratio 1.7, CBC w Diff NO MAN DIFF REQ, RBC 4.18 L, MCV 95.1, MCH 31.9 H, RDW 13.1, MPV 8.7, Gran % 68.4, Lymphocytes % 23.5, Monocytes % 6.6, Eosinophils % 1.0, Basophils % 0.5, Absolute Granulocytes 7.1 H, Absolute Lymphocytes 2.4, Absolute Monocytes 0.7 H, Absolute Eosinophils 0.1, Absolute Basophils 0.1, PUBS MCHC 33.5, [place] 0.4 L 12/20/16 1842: Urine Opiates Screen < 100.00, Methadone Screen < 40, Barbiturate Screen < 60, Ur Phencyclidine Scrn < 6.00, Amphetamines Screen < 100, U Benzodiazepines Scrn < 85, Urine Cocaine Screen < 50, Urine Cannabis Screen > 80.00 H, Urine Color YEL, Urine Clarity CLEAR, Urine pH 6.0, Ur Specific [place] 1.015, Urine Protein NEG, Urine Ketones NEG, Urine Nitrite NEG, Urine Bilirubin NEG, Urine Urobilinogen 0.2, Ur Leukocyte Esterase NEG, Ur Microscopic EXAM NOT REQUIRED, Urine Hemoglobin NEG, Urine Glucose NEG Initial ED EKG: none (CHRISTEN MABRY DO) Comments: 12/20/2016 7:23:14 PM patient signed out to me by 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 (BO CAMPOS,CHRISTEN Durant) Departure Departure Disposition: STILL A PATIENT Condition: Stable Referrals: TIA WILEY MD (PCP/Family) Departure Forms: Customer Survey General Discharge Information (CHRISTEN MABRY DO) Departure Clinical Impression Primary Impression: Psychosis Secondary Impressions: Marijuana use (CHRISTEN SANCHEZ MD) Critical Care Note Critical Care Note Critical Care Time: 30-74 min (CHRISTEN MABRY DO)
--- NOTE | 2016-12-20 18:30 | NUR ---
PT HAS 1 BELONGINGS BAG IN CLOSET 1 VALUABLES BAG IN ER SAFE 1 MED BAG IN PHARMACY
--- NOTE | 2016-12-20 18:45 | NUR ---
PT MEDICATED WITH ATIVAN 2MG, BENADRYL 50MG AND ZYPREXA 10MG IM SECURITY PRESENT, CHARGE NURSE PRESENT, CRISIS SW PRESENT
--- NOTE | 2016-12-20 19:26 | NUR ---
PT ASLEEP AT THIS TIME ON HER BACK ON BED IN ROOM 13. RESPIRATIONS EQUAL AND UNLABORED. SITTER AT DOOR.
[2016-12-20 20:38] LABS: ABSOLUTE BASOPHIL COUNT 0.1 /CUMM (0.0-0.2); ABSOLUTE EOSINOPHIL COUNT 0.1 /CUMM (0.0-0.7); ABSOLUTE GRANULOCYTE CT 7.1 /CUMM (1.4-6.5); ABSOLUTE LYMPH COUNT 2.4 /CUMM (1.2-3.4); ABSOLUTE MONOCYTE COUNT 0.7 /CUMM (0.10-0.60); BASOPHIL % 0.5 % (0.0-2.0); GRANULOCYTE % 68.4 % (42.2-75.2); HEMATOCRIT 39.7 % (37-47); MEAN CORPUSCULAR HGB 31.9 PG (27.0-31.0); MEAN CORPUSCULAR HGB CONC 33.5 G/DL (33.0-37.0); MEAN CORPUSCULAR VOLUME 95.1 FL (81.0-99.0); MEAN PLATELET VOLUME 8.7 FL (7.4-10.4); PLATELET COUNT 189 /CUMM (130-400); RBC DISTRIBUTION WIDTH 13.1 % (11.5-14.5); RED BLOOD CELL CT 4.18 /CUMM (4.20-5.40); WHITE BLOOD CELL COUNT 10.3 /CUMM (4.8-10.8)
--- NOTE | 2016-12-20 20:44 | NUR ---
LABS DRAWN AND SENT BY THIS MST (3 SST,LAV)
[2016-12-20 20:53] LABS: LITHIUM 0.4 mmol/L (0.6-1.2)
--- NOTE | 2016-12-20 21:02 | ED PSY CRISIS COLLATERAL NOTE ---
Collateral Note Collateral Note Family/Inform/Loraine Contacts: Daughter in law called and mentioned patient was recently discharged form hospital and she is completely decompensating she states she did not attend the IOP intake appointmetn, and is carrying on about nonsense that is not making any sense to anyone, talking about people that she doesn't know, and is not oriented. Prior to her arrival a neighbor and previous clincian here Xenia Mcclain called to say that this patient was not acting like herself, that the police were at her house, and that she was acting bizarre, delusional and was not at her baseline.
--- NOTE | 2016-12-20 21:25 | NUR ---
PT ASLEEP ON BACK IN ROOM 13. RESPIRATIONS EQUAL AND UNLABORED. SITTER AT DOOR.
--- NOTE | 2016-12-20 22:38 | NUR ---
PT WAS SITTING ON SIDE OF BED HUNCHED OVER APPEARING TO BE ASLEEP. THIS RN AND SITTER ASSISTED PT TO LYING POSITIONAND GAVE HER A BLANKET. PT CALM AND COOPERATIVE. SITTER AT DOOR.
--- NOTE | 2016-12-21 01:00 | NUR ---
PATIENT CONTINUES TO SLEEP AT THIS TIME W/ REGULAR RESPIRATIONS NOTED. SITTER REMAINS AT BEDSIDE.
--- NOTE | 2016-12-21 03:14 | NUR ---
PATIENT CONTINUES TO SLEEP AT THIS TIME W/ REGULAR RESPIRATIONS NOTED. SITTER REMAINS W/ PATIENT. PATIENT TURNING AND REPOSITIONING SELF W/O DIFFICULTY.
--- NOTE | 2016-12-21 04:50 | NUR ---
PATIENT CONTINUES TO SLEEP AT THIS TIME W/ REGULAR RESPIRATIONS NOTED. LIGHTS DIMMED. SITTER REMAINS W/ PATIENT. PATIENT CONTINUES TO TURN/ REPOSITION W/O DIFFICULTY/ ASSIST.
--- NOTE | 2016-12-21 06:57 | NUR ---
PATIENT CONTINUES TO SLEEP AT THIS TIME W/ REGULAR RESPIRATIONS NOTED. SITTER REMAINS AT BEDSIDE.
--- NOTE | 2016-12-21 07:35 | NUR ---
ASSUMED CARE OF PT AT THIS TIME, PT SLEEPING AT THIS TIME REG RESP RATE NOTED SITTER REMAINS PRESENT
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
--- NOTE | 2016-12-21 09:21 | NUR ---
REOPRT GIVEN TO [facility] DISTRIBUTION CALLED FOR TRANSPORT
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
[2016-12-21 09:57] VITALS: BP 106/70
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
--- NOTE | 2016-12-21 10:50 | NUR ---
UNABLE TO RECONCILE PTS MEDS DUE TO HER SEDATION. UNKNOWN WHETER SHE TOOK MEDS WHEN DISCHARGED
[2016-12-21 12:43] VITALS: BP 107/61
[2016-12-21 16:13] VITALS: BP 93/70
[2016-12-21 20:06] VITALS: BP 119/68
--- NOTE | 2016-12-21 20:57 | NUR ---
PT IS VISIBLE ON UNIT, SOCIAL WITH PEERS AND VISITING WITH FRIEND. PT IS IRRITABLE AND PRESSURED WITH STAFF WHEN REQUESTS ARE NOT TENDED TO IMMEDIATELY. REQUIRES FREQUENT REDIRECTION BUT RESPONDS WELL TO IT. NO COMPLAINTS OR SI REPORTED. PT HAS A STABLE MOOD AND IRRITABLE AFFECT.
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
[2016-12-22 08:25] VITALS: BP 105/68
--- NOTE | 2016-12-22 11:17 | PN- Att Addend ---
Attending Addendum Attending Brief Note 56F PMH bipolar disorder with psychotic features, hypothyroidism, history of transaminitis brought in for decompensation of clinical condition with non- sensical, bizzare, pressured speech and bizarre behavior. Labs and vitals normal. Transaminitis resolved. Current Medications Sig/Gregg Start time Last Medication Dose Route Stop Time Status Admin Acetaminophen 650 MG Q8P PRN 12/21 191 AC 12/21 PO 195 Albuterol Sulfate 2 PUF Q4P PRN 12/21 191 AC 12/22 INH 0909 Benzocaine/Menthol 1 MIGUEL Q2P PRN 12/22 1015 AC PO Ibuprofen 400 MG Q6P PRN 12/21 191 CAN PO Levothyroxine Sodium 0.088 MG 0712/22 0700 AC 12/22 PO 0609 Hardy Carbonate 300 MG 0800,12/21 AC 12/22 PO 0906 Nicotine 7 MG 0812/21 1630 AC 12/22 TOP 0906 Risperidone 2 MG 12/21 2200 AC 12/21 PO 2222 Risperidone 1 MG Q6P PRN 12/21 1630 AC PO 1. Psychosis 2. Bipolar disorder 3. Hypothyroidism Plan - Ad[facility] to [facility] - Management by psychiatry - Continue home medications including Synthroid - Ambulatory for DVT PPx - Please re-consult medicine for any issues
[2016-12-22 12:25] VITALS: BP 113/83
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
[2016-12-22 16:12] VITALS: BP 123/68
[2016-12-22 19:49] VITALS: BP 130/72
--- NOTE | 2016-12-22 21:46 | NUR ---
PT IS CALM, COOPERATIVE WITH STAFF AND PEERS, AND COMPLIANT WITH UNIT RULES. PT IS OFTEN IN MILIEU, INTERACTING WELL WITH OTHERS. MOOD IS STABLE, AFFECT IS BRIGHT TO FULL RANGE, COMMUNICATION IS ORGANIZED AND APPEARS NORMAL IN ALL RESPECTS, AND APPETITE IS NORMAL. PT DENIES SI AT THIS TIME.
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
[2016-12-23 07:41] VITALS: BP 99/66
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
[2016-12-23 07:55] VITALS: BP 99/66
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
[2016-12-23 12:38] VITALS: BP 127/64
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
--- NOTE | 2016-12-23 15:49 | SOCIAL WORKER TX PLAN PSYCH ---
Treatment Plan - Please Document: - Evidence that there is ongoing collaboration between - the patient and the interdisciplinary team, - including the patient's active participation and - responsibility for engaging in the treatment regimen, - and that the treatment plan is individualized and - relevant to the patient's conditions. - Treatment plan should reflect documentation indicating - that all active therapeutic efforts are included. Strengths/Capabilities: The patient does appear to have supportive family that are invovled in her life. Physical Limitations (Interventions): None identified Patient Identified Trmt Goals: "I want to go home" Discharge Plan: [facility] Problem/Goals #1 Problem #1: psychosis Goal (Short Term): Be safe on unit, 15 min checks, be visible on the unit, share feelings with staff, Idenitfy 1-2 triggers chelly/psychosis, and 1-2 ways to cope with stressors. Attend all Mental health and activity groups on the unit daily (4 or more groups), verbalize increase in understanding/insight into illness. Goal (Principal Solutions Architect): Report stable mood and as observed by staff, no AH/VH, No SI/HI, attend after- care treatment. Interventions: Individual therapy daily, group therapy, MD appt for medication daily, family meeting Modalities: CBT, DBT, MD modalities, accupuncture, activity groups, SA/MH groups. Problem/Goals #2 Problem #2: Cannibis Use Goal (Short Term): Idenitfy 1-2 triggers to Cannibis use, and 1-2 ways to prevent relapse. Attend all Substance abuse groups on unit, verbalize increase in understanding of impact substance abuse has on mood and functioning. Goal ([facility]): Maintain abstinence, use relapse prevention plan in daily life, sober/clean supports, AA/NA and follow-up with aftercare plan. Interventions: Individual therapy daily, group therapy, MD/RESIDENTIAL SOLAR CONSULTANT medication management daily, family meetings as needed. Modalities: Provide psychoeducation on substance abuse and impact on mood, symptoms and functioning. CBT, MD and strengths based modalites. DSM5/PS Stressors/Medical Prob Diagnosis' (DSM 5, Stressors, Medical): Bipolar mixed with psychotic features F31.2, cannabis use f12.20 Current GAF: 15 Treatment Team - Responsibilities of members of the treatment team include: - Medication Management- MD or RESIDENTIAL SOLAR CONSULTANT - Medication Administration and Monitoring- Nurse - Group Therapy- Occupational Therapist - 1:1 Therapy,Disch Planning,family involvement-Electrical Superintendent
[2016-12-23 15:55] VITALS: BP 136/84
[2016-12-23 19:55] VITALS: BP 120/62
--- NOTE | 2016-12-23 21:25 | NUR ---
PT IS MOSTLY COOPERATIVE WITH STAFF AND PEERS, AND COMPLIANT WITH UNIT RULES. PT IS OFTEN IN MILIEU, INTERACTING WELL WITH OTHERS. CAN BE IRRITABLE AT TIMES, AND VERBALLY AGGRESSIVE WITH STAFF ON OCCASION, THOUGH THIS USUALLY PASSES QUICKLY. MOOD IS STBALE, AFFECT IS BRIGHT TO FULL RANGE, COMMUNICATION IS ORGANIZED AND APPEARS NORMAL IN ALL RESPECTS, AND APPETITE IS NORMAL. PT DENIES SI AT THIS TIME.
[2016-12-24 08:10] VITALS: BP 124/61
[2016-12-24 12:12] VITALS: BP 132/64
--- NOTE | 2016-12-24 14:01 | NUR ---
PT HAS BEEN VISIBLE IN THE MILIEU TODAY. HER GOAL WAS TO MAKE THE BEST OF TODAY. IN THE MILIEU PT WENT TO GROUP, AND INTERACTING WELL WITH HER PEERS. SHE IS COOPERATIVE WITH STAFF DIRECTION, AND DENIES THOUGHTS OF HURTING HERSELF.
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
[2016-12-24 16:07] VITALS: BP 120/61
[2016-12-24 20:09] VITALS: BP 129/79
--- NOTE | 2016-12-24 21:23 | NUR ---
PT IS VISIBLE ON UNIT, SOCIALIZING WITH PEERS AND COLORING IN KITCHEN. HAD VISIT WITH FRIEND AND SON. PT REPORTS HER VISIT WITH SON DID NOT GO WELL, REQUESTED MEDS AFTER HE LEFT. OVERALL COOPERATIVE AND COMPLIANT WITH STAFF. AT TIMES PT IS HYPERVERBAL AND PRESSURED BUT RESPONDS WELL TO REDIRECTION. NO COMPLAINTS OR SI REPORTED. PT HAS A STABLE MOOD AND FULL RANGE AFFECT.
[2016-12-25 07:34] VITALS: BP 95/56
--- NOTE | 2016-12-25 07:54 | NUR ---
PATIENT SIGNED A PROBABLE CAUSE REQUEST ON SATURDAY 12/23 @17:25. [address] IS CLOSED AND WILL BE FILED ON MONDAY. PAPERWORK IS WITH FILM COMPOSER. AIME MELLO AND AGUILAR MIDDLETON NOTIFIED.
[2016-12-25 12:18] VITALS: BP 109/62
--- NOTE | 2016-12-25 13:40 | NUR ---
PT HAS BEEN VISIBLE IN THE MILIEU TODAY. HER GOAL WAS TO ENJOY BEING HERSELF. IN THE MILIEU PT HAS BEEN INTERACTNG WITH HER PEERS AND STAFF. SHE HAS BEEN GOING TO GROUPS THROUGHOUT THE DAY, AND COMPLYING WITH THE RULES OF THE UNIT. PT REPORTED THAT SHE WANTS TO , BUT HAS NO THOUGHTS RIGHT NOW TO HURT HERSELF, AND DENIES A PLAN. THE CHARGE NURSE WAS NOTIFED ABOUT THIS.
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
[2016-12-25 15:42] VITALS: BP 131/67
[2016-12-25 20:30] VITALS: BP 115/88
--- NOTE | 2016-12-25 22:58 | NUR ---
PT HAS BEEN SEEN USING GOOD COPING SKILLS THROUGHOUT THE EVENING. AT TIMES SHE CAN APPEAR GRANDIOSE WHEN COMMUNICATING WITH STAFF AND PEERS. 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 ALL OF THE CONTENTS WITHIN HER CONVERSATION CENTERS AROUND A POWER STRUGGLE/ OR EXPRESSES A STRONG, FEARLESS PERSONA. PT DENIES ANY THOUGHTS OF SI AT THIS TIME.
--- NOTE | 2016-12-26 06:32 | NUR ---
PATIENT WAS AWAKE SEVERAL TIMES DURING THE NIGHT; SHE WOULD COME TO THE NURSING STATION DESK, AND STATE "I FINALLY FIGURED IT OUT", BUT IT WAS DIFFICULT TO ASSESS WHAT SHE WAS TALKING ABOUT; SHE APPEARED TO HAVE TROUBLE COLLECTING HER THOUGHTS AND SEEMED SLEEPY; SHE HAD BEEN GIVEN PRN TYLENOL, RISPERDAL 1MG, AND ATIVAN 1MG AT 0120 WHICH TEMPORARILY ALLOWED HER TO SLEEP.
[2016-12-26 08:08] VITALS: BP 94/67
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
--- NOTE | 2016-12-26 11:12 | SOCIAL WORKER PROG NOTE PSYCH ---
Social Work Progress Note Progress Note Discussed Rose Marie with Cyndi Sifuentes APRN today, her progress and treatment planning. Met with Rose Marie who seems calmer, less manic and pressured than last week. She appears to be thinking more clearly. She revoked her 3-day paper and signed in voluntary. She stated she is glad she is staying a few more days, so she can "feel right." She seems to exhibit more insight - stated - Donnie visited me over the weekend and he said one wrong thing - and I ordered him to leave, then I did the same thing with my son." Rose Marie stated the staff and peers made it a very good weekend, she thought being on CPS over Mother's Day was going to be very difficult. She reports sleeping well, no SI/HI, no psychosis. Rose Marie stated she will have her friend, Donnie in for a meeting. Called Donnie #[phone] - he is unable to come in for a meeting until after 4pm, so scheduled a meeting (Phone) for 12/27/16 at 10:45-11:15 (during his lunch). Rose Marie stated she will attend [facility], and wants a visiting nurse.
[2016-12-26 12:25] VITALS: BP 92/62
--- NOTE | 2016-12-26 13:53 | NUR ---
PT IS COMPLIANT AND COOPERATIVE. MOOD IS STABLE WITH A CONSTRICTED AFFECT. PT DENIES SI AT THIS TIME, NO COMPLAINTS OFFERED. PT IS PRESENT IN THE COMMUNITY AND INTERACTING WELL WITH PEERS AND STAFF. PT IS ATTENDING SOME GROUPS. VITALS ARE STABLE, APPETITE IS GOOD.
[2016-12-26 16:35] VITALS: BP 124/59
[2016-12-26 19:24] VITALS: BP 138/74
--- NOTE | 2016-12-26 22:01 | NUR ---
PT IS VISIBLE ON UNIT, VERY SOCIAL AND PROVIDING A LOT OF SUPPORT TO PEERS. COOPERATIVE AND COMPLIANT WITH STAFF. ATTENDED WRAP UP MEETING AND PARTICIPATED. NO COMPLAINTS OR SI REPORTED. PT HAS A STABLE MOOD AND FULL RANGE AFFECT.
--- NOTE | 2016-12-27 08:00 | CP SOUTH PROGRESS NOTE PSYCH ---
Psych (Inpt) Progress Note Progress Note Include the following elements, when applicable: Involvement in the active treatment of the patient with behavioral observations of the patient and the patient's response to the treatment. Review of the ongoing treatment process in the context of the treatment plan. Indication of how multi-disciplinary staff members are carrying out the treatment plan. Plans for future interventions and recommendations for revision of the treatment plan. Liaison with other physicians/providers. Progress Note: I discussed this patient's progress to date, current mental status, treatment process in the context of the treatment plan, and discharge planning with staff/ team in the daily morning inpatient team meeting. I also met with the patient myself in individual session. OBJECTIVE: Current Medications Sig/Gregg Start time Last Medication Dose Route Stop Time Status Admin Acetaminophen 650 MG .STK-MED ONE 12/26 2217 DC PO 12/26 2218 Acetaminophen 650 MG .STK-MED ONE 12/26 1558 DC PO 12/26 1559 Acetaminophen 650 MG Q6P PRN 12/24 2030 AC 12/26 PO 2223 Albuterol Sulfate 2 PUF Q4P PRN 12/21 1915 AC 12/26 INH 2221 Benzocaine/Menthol 1 MIGUEL Q2P PRN 12/22 1015 AC 12/26 PO 2001 Benztropine Mesylate 0.5 MG BID 12/26 2200 AC 12/27 PO 0735 Benztropine Mesylate 1 MG Q4 HRS NEEDED PRN 12/23 1815 AC PO Calcium/Vitamin D 500 MG DAILY 12/23 1000 AC 12/27 PO 0736 Cyanocobalamin 1,000 MCG DAILY 12/23 1000 AC 12/27 PO 0736 Docusate Sodium 100 MG BID 12/22 2200 AC 12/27 PO 0735 Lactobacillus 1 CAP 1700 12/23 1700 AC 12/26 Acidophilus PO 1605 Levothyroxine Sodium 0.088 MG 0712/22 0700 AC 12/27 PO 0732 Lidocaine 1 PAT DAILY 12/24 1432 AC 12/27 EXT 0735 [employer] Carbonate 450 MG 0812/23 0800 AC 12/27 PO 0733 [place] Carbonate 600 MG 2100 12/22 2100 AC 12/26 PO 2002 Lorazepam 1 MG Q6P PRN 12/22 1530 AC 12/26 PO 0120 Nicotine 7 MG 0812/21 1630 AC 12/27 TOP 0734 Risperidone 1 MG 0800 12/27 0800 AC 12/27 PO 0734 Risperidone 4 MG 2200 05/12 2200 AC 12/26 PO 2215 Risperidone 1 MG Q6P PRN 12/21 1630 AC 12/26 PO 0120 Vital Signs Date Time Temp Pulse Resp B/P B/P Pulse O2 O2 Flow FiO2 Mean Ox Delivery Rate 12/264 99.0 84 138/74 12/26 1635 81 124/59 12/26 1225 87 92/62 12/26 0808 89 94/67 ASSESSMENT: Chart, progress notes, labs, VS and medication list were reviewed. No new lab results today. Vital sings within normal limits. Met with patient individually at 8AM. She shared that she spoke to her sister last evening who told her she sounded good. She recalled that during last admission on [facility], her sister had been argumentative with her, but now they are getting along. Her thought process appeared more organized and linear today. There was no evidence of paranoia or delusional content. Patient stated that she looks forward to phone conference today with her friend Luke. She stated he visited last evening and they formulated a plan to cohabitate together following her discharge. The patient stated this would make her feel safe in her home, given that she is unsure if her ex-fiance is back in [place]. She reported her sleep and appetite remain good. She described having good energy level. She reported her mood as "good." Mood was non-labile, stable on encounter. Affect was full-range, appropriate, congruent with reported mood, non-labile. Speech was normal in rate, tone and volume; non-pressured. Eye contact was appropriate. She denied passive/active suicidal and homicidal ideation. She denied auditory and visual hallucinations. She denied PI and delusions. There was no evidence of patient responding to internal stimuli. Cognition was grossly intact. Patient reported tolerating increase in Risperdal and addition of Cogentin well. She denied untoward medication effects. Broached recommendation of switching from Risperdal oral formulation to Risperdal Consta RHODES for continued medication adherence post-discharge. Patient was not agreeable to recommendation. Patient agreeable to continue oral Risperdal. PLAN: 1. Continue monitoring for safety, mood and thought process. 2. Continue Risperdal 1mg QAM and 4mg QHS for clears thoughts/mood stabilization. Continue Cogentin 0.5mg BID. 3. Continue [place]gen[place] 450mg BID for mood stabilization. 4. Phone conference with friend Luke today. 5. Dispo planning per primary team.
[2016-12-27 08:14] VITALS: BP 121/89
--- NOTE | 2016-12-27 11:25 | SOCIAL WORKER PROG NOTE PSYCH ---
See Addendum Social Work Progress Note Progress Note Met with Rose Marie today, she denied SI/HI, no psychosis. Her thoughts appear more organized and clear. Had a phone conference meeting with her friend, Derrell Maximino . Rose Marie has been staying with Derrell over the past year (on and off), she identified him as a support. Derrell lives at [address] [place] [address] in [place], [place] and Rose Marie plans to stay with him (and she will check in on her home in [place], as well). She stated she finds it helpful to stay with him and less stressful. Derrell stated he knows the triggers when Rose Marie is not doing well - not sleeping, when she is angry and irritable, aggitated. He encouraged her to take her medications and attend the [facility]. She has an intake at [facility] on . 12/28/16 at 12:45pm. Referral made to [facility] visiting nurse - (spoke with Mily), . [facility] can to a late afternoon/evening intake, recommend BID medication administration, they will also provide a lock box. They use [facility] - medications can be called into the pharmacy upon discharge. Rose Marie seemed goal oriented still some pressure speech about her Father's home and taking care of it. Rose Marie will need [employer] for her transportation to and from [facility], as her firend, Derrell (Luke) works at a school during the day. Plan for [facility] reveiw today online.
[2016-12-27 12:31] VITALS: BP 97/62
--- NOTE | 2016-12-27 13:57 | NUR ---
PT HAS BEEN COMPLIANT WITH HER MED REGIME AND CALM AND COOPERATIVE WITH HER PEERS AND STAFF. SHE DENIES ANY SUICIDAL THOUGHTS AND IS HOPING FOR DISCHARGE TOMORROW
[2016-12-27 16:24] VITALS: BP 133/53
[2016-12-27 19:55] VITALS: BP 128/86
--- NOTE | 2016-12-27 21:09 | NUR ---
PT IS COOPERATIVE WITH STAFF AND PEERS, AND COMPLIANT WITH UNIT RULES. PT IS OFTEN IN [place], INTERACTING TO A GREAT EXTENT WITH OTHERS. MOOD IS STABLE, AFFECT IS BRIGHT, COMMUNICATION IS ORGANZIED AND APPEARS NORMAL IN ALL RESPECTS, AND APPETITE IS NORMAL. PT DENIES SI AT THIS TIME.
--- NOTE | 2016-12-28 05:42 | NUR ---
PT CALMER, WITH SOME INSIGHT. PT SOCIAL. PT UP FOR ONE HOUR IN THE NIGHT. PT TO DC TODAY.
[2016-12-28 07:36] VITALS: BP 98/59
[2016-12-28] MEDS ORDERED: NICOTINE PATCH1 EAC1 TOP (07:54)
[2016-12-28] MEDS ORDERED: LITHIUM CARBON150 M1 PO (07:57)
[2016-12-28] MEDS ORDERED: LITHIUM CARBON300 M4 PO (07:58)
[2016-12-28] MEDS ORDERED: SYNTHROID88 MCG PO (07:59)
[2016-12-28] MEDS ORDERED: VENTOLIN HFA18 GM INH (08:03)
--- NOTE | 2016-12-28 08:27 | CP SOUTH PROGRESS NOTE PSYCH ---
Psych (Inpt) Progress Note Progress Note Include the following elements, when applicable: Involvement in the active treatment of the patient with behavioral observations of the patient and the patient's response to the treatment. Review of the ongoing treatment process in the context of the treatment plan. Indication of how multi-disciplinary staff members are carrying out the treatment plan. Plans for future interventions and recommendations for revision of the treatment plan. Liaison with other physicians/providers. Progress Note: I discussed this patient's progress to date, current mental status, treatment process in the context of the treatment plan, and discharge planning with staff/ team in the daily morning inpatient team meeting. I also met with the patient myself in individual session. OBJECTIVE: Current Medications Sig/Gregg Start time Last Medication Dose Route Stop Time Status Admin Acetaminophen 650 MG .STK-MED ONE 12/27 2220 DC PO 12/27 2221 Acetaminophen 650 MG .STK-MED ONE 12/27 1303 DC PO 12/27 1304 Acetaminophen 650 MG .STK-MED ONE 12/27 0907 DC PO 12/27 0908 Acetaminophen 650 MG Q6P PRN 12/24 2030 AC 12/27 PO 2226 Albuterol Sulfate 2 PUF Q4P PRN 12/21 1915 AC 12/28 INH 0208 Benzocaine/Menthol 1 MIGUEL Q2P PRN 12/22 1015 AC 12/28 PO 0210 Benztropine Mesylate 0.5 MG BID 12/26 2200 AC 12/27 PO 2221 Benztropine Mesylate 1 MG Q4 HRS NEEDED PRN 12/23 1815 AC PO Calcium/Vitamin D 500 MG DAILY 12/23 1000 AC 12/27 PO 0736 Cyanocobalamin 1,000 MCG DAILY 12/23 1000 AC 12/27 PO 0736 Docusate Sodium 100 MG BID 12/22 2200 AC 12/27 PO 2221 Lactobacillus 1 CAP 1700 12/23 1700 AC 12/27 Acidophilus PO 1650 Levothyroxine Sodium 0.088 MG 0712/22 0700 AC 12/28 PO 0646 Lidocaine 1 PAT DAILY 12/24 1432 AC 12/27 EXT 0735 [employer] Carbonate 450 MG 0800 12/23 0800 AC 12/27 PO 0733 [employer] Carbonate 600 MG 2100 12/22 2100 AC 12/27 PO 2221 Lorazepam 1 MG Q6P PRN 12/22 1530 AC 12/27 PO 1836 Nicotine 7 MG 0800 12/21 1630 AC 12/27 TOP 0734 Risperidone 1 MG 0812/27 0800 AC 12/27 PO 0734 Risperidone 4 MG 2200 12/23 2200 AC 12/27 PO 2221 Risperidone 1 MG Q6P PRN 12/21 1630 AC 12/26 PO 0120 Vital Signs Date Time Temp Pulse Resp B/P B/P Pulse O2 O2 Flow FiO2 Mean Ox Delivery Rate 12/28 0736 97.5 92 98/59 12/27 1955 98.2 82 128/86 12/27 1624 85 133/53 12/27 1231 87 97/62 ASSESSMENT: Chart, progress notes, labs, VS and medication list were reviewed. Vital signs within normal limits. No new lab results today. Reviewed patient's progress with nursing staff who described patient as calmer, with improved insight and behavioral control, social with peers and attending milieu groups. Remains medication adherent. No reports of SI, HI, AVH. Met with patient this morning. She expressed feeling "happy" about discharge today and feeling good about discharge plan. She presented alert and oriented to person, place, time and situation. Eye contact was appropriate. Speech was average in rate, tone and volume. Affect was full-range, appropriate, non- labile. Mood was euthymic, non-labile. She had no complaints. She rated depression a 0/10 (10 being the worst) and rated anxiety a 2/10 (10 being the worst). She denied passive and active suicidal ideation, plans and intent. She denied homicidal ideation. She stated and also believed she will not harm herself or others. She gave protective factors of her son "Yo," her sister "Rachel," and friend "Luke." She denied auditory and visual hallucinations, paranoid ideation. There was no evidence of diana delusions. She reported her appetite and sleep were good. She described her energy level as good. She showed improved judgement and insight, stating "I'm glad I'm taking the Risperdal, I really did need it for my thoughts." Patient reported tolerating medications well and denied side effects. She was agreeable to continue taking them as prescribed. She expressed motivation to attend IOP intake today at 12:45PM receive transportation home from friend Luke. She reported feeling safe and ready for discharge. PLAN: 1. Discharge today into the care of her friend Luke, to his home. 2. F/u at [facility] for intake today, 12/28/16 at 12:45PM. 3. [facility] to begin today, 12/28/16 for BID medication administration. All discharge prescriptions were e-prescribed to [facility] per [facility] request. 4. F[facility]u at [facility] on 12/28/16 at 4PM. 5. F/u with nail setter Dr. Saunders at [facility] on 03/10/17 at 2:45PM. 6. Abstain from all substances. Patient advised to continue AA meetings for support in sobriety. 7. In the event of an emergency, call 911/go to nearest emergency department. Patient verbalized understanding of instructions.
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
--- NOTE | 2016-12-28 10:56 | NUR ---
PT IS SCHEDULED FOR DISCHARGE TODAY, PRESENT WITHIN THE COMMUNITY, NO ISSUES OR COMPLAINTS REPORTED OR OBSERVED, WHEN ASKED DIRECTLY DENIES SI/HI/HALLUCINATIONS AND NO EVIDENCE OF THE ABOVE. PT IS OVERALL CALM, COOPERATIVE AND COMPLIANT WITH TREAMENT AND PT RESOURCE GUIDE AND W-10 REVIEWED WITH PT AND HAS A + UNDERSTANDING ON MEDICATION REGIMENT AND FOLLOW-UP DISCHARGE INSTRUCTIONS AND MOTIVATED WELL. INFORMATION PACKET RE: BIPOLAR AND SI GIVEN TO PT. REPORTS IMPROVEMENT IN MOOD, BEHAVIOR, APPETITE AND SLEEP AND FEELS STABLE AND SAFE FOR DISCHARGE, NO QUESTIONS OR CONCERNS.
[2016-12-28] MEDS ORDERED: RISPERDAL1 M1 PO (11:26)
[2016-12-28] MEDS ORDERED: RISPERDAL4 M1 PO (11:26)
[2016-12-28] MEDS ORDERED: BENZTROPINE ME0.5 M1 PO (11:27)
[2016-12-28 12:10] VITALS: BP 125/79
== END 2016-12-28 13:05 | DRG 753 ==
LOC: ERH 17:57 → ERHI 12-21 08:34 → CP SOUTH 12-21 08:34 → ENRESERV 12-21 11:00 → CP SOUTH 12-26 14:36 → ENPENDDIS 12-28 13:00 → CP SOUTH 12-28 13:05
PROVIDERS: Physician Assistant; ADMIT Psychiatry & Neurology Addiction Medicine
DX: F31.60 Bipolar disorder, current episode mixed, unspecified (principal); F12.20 Cannabis dependence, uncomplicated; M54.30 Sciatica, unspecified side; K57.92 Diverticulitis of intestine, part unspecified, without perforation or abscess without bleeding; M85.80 Other specified disorders of bone density and structure, unspecified site; E03.9 Hypothyroidism, unspecified
CPT/HCPCS: 36415; 80307; 81003; 90834; 96372; G0480; J1200; J1630; J3490

== ENCOUNTER 2017-01-20 13:14 | Inpatient (IN) | payer OTHER ==
[~2017-01-20] VITALS: Ht 165.1 cm; Wt 68.7 kg
[~2017-01-20 13:14] MED LIST changes: +BENZTROPINE ME0.5 M1 PO; +RISPERDAL1 M1 PO; +RISPERDAL4 M1 PO; +VENTOLIN HFA18 GM INH
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
--- NOTE | 2017-01-20 13:51 | NUR ---
PT STATES THAT SHE IS AWAITING TEST RESULTS FROM DR WILEY AND WOULD LIKE HIM TO BE CALLED. PT IS REQUESTING PRO-AIR AND BREATHING TREATMENT
--- NOTE | 2017-01-20 14:30 | NUR ---
DR SORIANO AT BEDSIDE FOR EVAL
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
--- NOTE | 2017-01-20 15:07 | NUR ---
BLOOD DRAWN AND SENT TO LAB [facility]UE
[2017-01-20 15:12] LABS: ABSOLUTE BASOPHIL COUNT 0 /CUMM (0.0-0.2); ABSOLUTE EOSINOPHIL COUNT 0.1 /CUMM (0.0-0.7); ABSOLUTE GRANULOCYTE CT 8.6 /CUMM (1.4-6.5); ABSOLUTE LYMPH COUNT 1.7 /CUMM (1.2-3.4); ABSOLUTE MONOCYTE COUNT 0.4 /CUMM (0.10-0.60); BASOPHIL % 0.4 % (0.0-2.0); EOSINOPHIL % 0.6 % (0-5); GRANULOCYTE % 79.2 % (42.2-75.2); HEMATOCRIT 38.6 % (37-47); MEAN CORPUSCULAR HGB 31.3 PG (27.0-31.0); MEAN CORPUSCULAR HGB CONC 33.1 G/DL (33.0-37.0); MEAN CORPUSCULAR VOLUME 94.6 FL (81.0-99.0); MEAN PLATELET VOLUME 8.5 FL (7.4-10.4); PLATELET COUNT 242 /CUMM (130-400); RBC DISTRIBUTION WIDTH 13.4 % (11.5-14.5); RED BLOOD CELL CT 4.08 /CUMM (4.20-5.40); WHITE BLOOD CELL COUNT 10.8 /CUMM (4.8-10.8)
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
--- NOTE | 2017-01-20 15:30 | NUR ---
PT AMBULATORY FROM ROOM 14 TO ROOM 19 WITH STEADY GAIT. PT REMAINS HYPERVERBAL AND HAS DIFFICULTY STAYING ON TOPIC. SITTER AT DOOR.
--- NOTE | 2017-01-20 17:15 | NUR ---
CRISIS IN TO EVALUATE PT. PT BECAME UPSET AND SAID "I THOUGHT I WAS GOING TO SEE A MEDICAL DOCTOR FIRST". THIS RN TOLD HER THAT SHE HAD BEEN SEEN BY DR SORIANO ON ADMISSION. PT ASKING TO MEET WITH DR SORIANO AND KNOW HER TEST RESULTS. SITTER AT DOOR. PT VERBALLY AGGRESSIVE TO STAFF AND HAVING DIFFICULTY STAYING IN HER ROOM.
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
--- NOTE | 2017-01-20 18:38 | NUR ---
NICOTINE PATCH 7MG APPLIED TO PT'S RUE REQUESTED. RESPIRATORY CALLED FOR DUO NEB TX
--- NOTE | 2017-01-20 19:00 | NUR ---
RESPIRATORY AT BEDSIDE FOR DUO NEB TX
--- NOTE | 2017-01-20 20:30 | NUR ---
PT MEDICATED WITH TYLENOL 650MG PO AND APPLIED LIDODERM PATCH TO PT'S MID BACK. PT CALM AND COOPERATIVE. SITTER AT DOOR.
--- NOTE | 2017-01-20 22:47 | NUR ---
PT REFUSED RISPERIDONE, STATING THAT IT "MADE HER KNEES SWELL UP AND SHE THOUGHT SHE HAD A CLOT". PT CALM AND COOPERATIVE WITH MALE VISITOR IN ROOM. SITTER AT DOOR.
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
--- NOTE | 2017-01-21 04:10 | NUR ---
SLEEPING AT PRESENT
--- NOTE | 2017-01-21 04:45 | NUR ---
AWAKE USED BR HAD BOX LUNCH
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
--- NOTE | 2017-01-21 08:11 | NUR ---
RESP PAGED FOR TREATMENT
--- NOTE | 2017-01-21 08:15 | NUR ---
RESP PAGED FOR TREATMENT AT THIS TIME
--- NOTE | 2017-01-21 09:22 | NUR ---
[facility] CALLED FOR 10AM MEDS
--- NOTE | 2017-01-21 09:48 | NUR ---
PT MEDICTED PER EMAR WITH LODACINE PATCH AND LITHIUM, PT REFUSING TO TAKE RISPERIDONE STATING "IM ALLERGIC, I TOLD THEM YESTERDAY I CANT TAKE THAT"
--- NOTE | 2017-01-21 10:13 | NUR ---
AMBULATORY IN AREA AT THIS TIME CALM / COOPERATIVE. SITTER PRESENT
--- NOTE | 2017-01-21 10:41 | NUR ---
MOVED INTO ROOM 13 WITH MUCH ENCOURAGEMENT
--- NOTE | 2017-01-21 10:55 | NUR ---
MD WARE INTO RE EVAL
--- NOTE | 2017-01-21 11:10 | NUR ---
REPORT TO GRIFFIN GORDON
--- NOTE | 2017-01-21 11:16 | NUR ---
REPORT FROM EVAN PITT; ASSUMED CARE OF PT
--- NOTE | 2017-01-21 11:41 | NUR ---
PT REPORTS ONGOING "NODDING OFF", FEELINGS OF DIZZINESS AND REPORTED NEAR-FAINTING. THIS IS UNWITNESSED AND PER PATIENT, HAS BEEN INTERMITTENTLY RECURRING FOR SEVERAL MONTHS. ORTHOSTATIC VS DONE AND STABLE WITH NO RECURRENCE.
--- NOTE | 2017-01-21 12:24 | NUR ---
PT MEDICATED WITH TYLENOL AND ATIVAN PER EMAR FOR CHRONIC PAIN AND ANXIETY. FOOD TRAY ORDERED. PT STATED SHE HAS COPD AND REQUESTED O2 NC FOR BREATHING, 02SAT 99% ON RA AT THIS TIME, RR 18, NO RESP DISTRESS NOTED. PT LET KNOW SHE IS STABLE AND DOESN'T NEED O2 AT THIS TIME. WCTM.
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
--- NOTE | 2017-01-21 14:26 | NUR ---
UNABLE TO VERIFY HOME MEDS
--- NOTE | 2017-01-21 15:00 | NUR ---
RECEIVE REPORT FROM EVAN NAVARRETE. ASSUME CARE OF PATIENT.
--- NOTE | 2017-01-21 17:21 | NUR ---
PATIENT CURRENTLY RESTING SOUNDLY WITH EYES CLOSED AND DEEP/EVEN RESPIRATIONS AND IS W/O C/O.
--- NOTE | 2017-01-21 20:53 | NUR ---
PATIENT HAS BEEN UP AND OUT OF ROOM TO THE BR. OFFERS NO C/O OTHER THAT SHE FEELS IF SHE'S DYING B/C NO ONE IS LISTENING TO HER. ONCE SHE VERBALIZES THIS C/O, SHE GOES BACK TO HER ROOM AND GOES BACK TO SLEEP.
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
--- NOTE | 2017-01-21 23:54 | NUR ---
CO FEELING "TOO HOT" NEW BLUE SCRUB SHIRT GIVEN. FAN OUTSIDE OF PT ROOM PLACED IN MOVING POSITION SO HER ROOM WILL BE COOLED. PT THEN VOICE "THAT'S NO GOO. I NEED MY DOOR CLOSED BECAUSE ITS TOO LIGHT OUT THERE" SITTER AT DOOR.
--- NOTE | 2017-01-22 03:03 | NUR ---
SLEEPING VERY SHORT PERIODS THEN COMING OUT OF RM. STATES "ITS TOO HOT IN HERE." FAN AT PT DOOR.
--- NOTE | 2017-01-22 04:24 | NUR ---
VERY TALKATIVE. CO LOW BACK PAIN. "CAN I PLEASE HAVE AN XR?" EATING 2ND BOXED LUNCH SITTER AT DOOR.
--- NOTE | 2017-01-22 05:45 | NUR ---
REQUESTING NEB TX. STATES "SHE IS IN SO MUCH BACK PAIN THAT SHE IS WHEEZING"
--- NOTE | 2017-01-22 06:11 | NUR ---
NEW LIDODERM PATCH PLACED PER PT 'S INSTRUCTIONS TO LS AREA.
--- NOTE | 2017-01-22 08:07 | NUR ---
[facility] CALLED FOR SYNTHROID AT THIS TIME
--- NOTE | 2017-01-22 08:20 | NUR ---
PT MEEDICTED WITH SYNTHROID PER ORDER AT THIS TIME
--- NOTE | 2017-01-22 10:43 | NUR ---
PT MEDICATED PER EMAR WITH LITHIUM AT THIS TIME
--- NOTE | 2017-01-22 11:25 | NUR ---
PT CONTINUALLY COMING OUT OF ROOM, EXPLAINED TO PT MULTIPLE TIME SHE NEEDS TO STAY IN ROOM AND STOP INTERACTING WITH OTHER PATIENTS. PT STATING "YOUR A BITCH, STOP TELLING ME I HAVE TO STAY IN MY ROOM" PT REQUESTING TOOTHBRUSH AND COMB, PROVIDED TO PT PER REQUEST. PT BACK IN ROOM AT THIS TIME, SITTER REMAINS PRESENT
--- NOTE | 2017-01-22 12:22 | ED PSYCHIATRIST/APRN CONSULT ---
Psychiatrist/BALLET TEACHER ED Consult Assessment and Plan: pt is restless, mildly agitated at times. Paranoid adn delusional. She says she will suly the hospital, she wants to talk to her lab technician. She has multiple somatic complains and she sasys he needs to bve seen by a medical doctor and not a psychiatrist. She has very poor insight and she is in need of acute inpatient psychaitric care. Continue with bed search
--- NOTE | 2017-01-22 13:28 | NUR ---
PT REQUESTING THAT VALUABLES BAG BE OPENED AND HOUSE KEYS ALONG WITGH $10 BE GIVEN TO PATIENTS FRIEND HORTENCIA. HORTENCIA AGREED TO THIS PLAN. CHARGE NURSE KALEB OBTAINED VALUABLES BAG FROM THE SAFE, THIS MOLDING SANDER OPENED THE BAG WITH PATIENT AND FRIEND HORTENCIA IN ATTENDANCE. CONFIRMED HOUSE KEYS WITH PATIENT (KEYS WITH [employer] AND PLASTIC STORE CARD) AND THEN HANDED KEYS TO HORTENCIA. CONFIRMED THAT WITH PT THAT IN THE BAG WERE $4 IN SINGLES AND 1 $10 BILL ALONG WITH LOOSE CHANGE, PT STATED TO GIVE HORTENCIA THE $10 BILL IN ORDER TO BY CAT FOOD. PER PT $10 BILL WAS THEN HANDED TO HORTENCIA. VALUABLES PAPER WAS AMENDED TO SHOW THE ITEMS THAT HAD BEEN REMOVED. PATIENT THEN SIGNED THE AMENDED VALUABLES PAPER ALONG WITH THIS MOLDING SANDER. VALUABLES BAG WAS THEN GIVEN BACK TO CHARGE NURSE KALEB WHERE IT WAS SECURED BACK INTO THE SAFE.
--- NOTE | 2017-01-22 15:10 | NUR ---
RECEIVED REPORT ON PT FROM NURSE MIDDLETON AND NOTED PT AT DOOR OF ROOM REQUESTING TO HAVE NICOTINE PATCH. PT INFORMED MD WILL BE UPDATED
--- NOTE | 2017-01-22 15:36 | NUR ---
PT GIVEN NICOTINE PATCH TO LEFT DELTOID AREA
--- NOTE | 2017-01-22 17:31 | NUR ---
PT REMAINS HYPERVERBAL AND NOT COOPERATIVE WITH STAYING IN ROOM, CONTINUOUSLY BEEN REDIRECTED TO STAY IN ROOM. PT ATE AND REMAINS AT DOOR WITH SITTER
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
--- NOTE | 2017-01-22 20:34 | NUR ---
PT MEDICATED WITH PRN KLONOPIN PER MD MONTAÑO ORDER AND VITALS COMPLETED
--- NOTE | 2017-01-22 22:35 | NUR ---
PT HAS REMAINED CALM AND QUIET IN HER ROOM SINCE LAST CONVERSATION AND MEDICATED ORDERED AND TOLERATED ALL MEDS AND BACK TO SLEEP
--- NOTE | 2017-01-23 02:24 | NUR ---
[facility] Nurse Note by: CHAI SANCHEZ I agree with the SURVEY MANAGER findings/evaluation of this patient's condition. Entered by: CHAI SANCHEZ Date: 01/23/17 Time: 0224
--- NOTE | 2017-01-23 02:28 | NUR ---
PT SLEPT. AMBULATED TO BATHROOM AND THEN BACK TO BED. SITTER REMAINS IN ATTENDANCE
--- NOTE | 2017-01-23 06:52 | NUR ---
PT MEDICATED WITH SYNTHROID. PT C/O "THEY GOT MY BREAKFAST ALL WRONG AGAIN" "YOU GUYS ARE SUPPOSED TO BE ANGELS THAT TAKE CARE OF PEOPLE, NOT SOMEONE WHO TORTURES PEOPLE"
--- NOTE | 2017-01-23 09:06 | NUR ---
PT SPEAKING WITH CRISIS AT THIS TIME.
--- NOTE | 2017-01-23 10:27 | NUR ---
DIETARY CALLED ABOUT PTS BREAKFAST TRAY DELAY. TRAY TO BE DELIVERED SHORTLY PT MEDICATED WITH AM MEDS (Lidoderm patch to back, [place] Carbonate 150 mg PO, Nicotine Cq 7mg Top Patch applied to left arm, and Risperidone 1mg po) PER eMAR.
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
--- NOTE | 2017-01-23 12:14 | NUR ---
PT MEDUICATED WITH 650 MG TYLENOL PO FOR 02/20 ALL OVER PAIN
--- NOTE | 2017-01-23 12:36 | NUR ---
CALLED [facility] TO GIVE REPORT. ED FROM CRISIS WILL CALL TO RECEIVE REPORT SONU
--- NOTE | 2017-01-23 15:05 | NUR ---
CALLED [facility] TO GIVE REPORT. ED IS IN REPORT, WILL CALL WHEN FINISHED.
--- NOTE | 2017-01-23 15:58 | NUR ---
PT ADMITTED TO [facility]. ORAL REPORT GIVEM TO ED RN ALL V.S.S. CLINICAL STATUS UNCHANGED. PT READY FOR TRANSFER PT MEDICATED WITH 1 MG KLONOPIN PO
[2017-01-23 16:36] VITALS: BP 135/74
[2017-01-23 19:42] VITALS: BP 121/56
--- NOTE | 2017-01-23 20:16 | NUR ---
ADMITTED FROM ED ON PEC FOR BIPOLAR W/PSYCHOSIS. IS HYPERVERBAL AND TANGENTIAL GRANDIOSE, POSSIBLY PARONOID. CAN NOT STAY ON ONE TOPIC FOR ANY LENGTH OF TIME WITH OUT FOLLOWING HER OWN PATH ONTO WIDELY DIVERGENT TOPICS. HAS LARGE LIST OF PEOPLE WHO HAVE WRONGED HER. DENIES THOUGHTS OF SELF HARM WHEN ASKED. STATES SHE WAS COMPLIANT WITH MEDICATIONS AND LITHIUM WAS LOW DUE TO FLUID INTAKE.
[2017-01-23] MEDS ORDERED: BENZTROPINE ME0.5 M1 PO (20:28)
[2017-01-23] MEDS ORDERED: PROAIR HFA8.5 GM INH (20:28)
[2017-01-23] MEDS ORDERED: COLACE100 M1 PO (20:29)
[2017-01-23] MEDS ORDERED: SYNTHROID88 MCG PO (20:30)
--- NOTE | 2017-01-24 03:34 | NUR ---
SLEPT WELL OVERNIGHT, FORGOT TO REMOVE LIDOCAINE PATCH, REMOVED IT AT ABOUT 1AM. 1:1 OBSERVATION MAINTAINED.
[2017-01-24 07:38] VITALS: BP 105/62
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
[2017-01-24 12:18] VITALS: BP 112/72
--- NOTE | 2017-01-24 13:48 | NUR ---
PT WAS AGITATED THIS MORNING AND ACCUSING STAFF OF "TREATING HER LIKE A DOG". SHE WAS DIFFICULT TO REDIRECT.SHE WAS RESISTIVE TO TAKING HER MEDS CLAIMING WE JUST WANTED TO "SHUT HER UP". SHE WAS OVERHEARD STATING SHE PLANNED TO NOT TAKE HER MEDS BUT SAVE THEM FOR "SOMEONE ELSE" PT WILL BE PLACED ON MOUTH CHECKS AND WILL REMAIN ON ONE TO ONE MONITORING. SHE DENIES SUICIDAL THOUGHTS AT THIS TIME. SHE WAS QUIETER AND MORE APPROPRIATE IN THE AFTERNOON ALTHOUGH SHE SHOWS LITTLE INSIGHT INTO HER BEHAVIOR AND NEED FOR MEDS AND HOSPITALIZATION
[2017-01-24 15:56] VITALS: BP 105/69
--- NOTE | 2017-01-24 18:08 | NUR ---
PT IS COOPERATIVE FOR THE MOST PART WOTH STAFF AND PEERS, AND COMPLIANT WITH UNIT RULES. CURRRENTLY ON A 1:1 WITH A PATIENT SAFTEY MONITOR. SLIGHTLY AGITATED, NEEDS TO BE RE-DIRECTED AT TIMES. OFTEN IN [place] INTERACTING WITH OTHERS. MOOD IS STABLE, AFFECT APPEARS BRIGHT, COMMUNICATION IS ORGANIZED AND APEARS LOUD, PRESSURED, AND HYPERVERBAL. APPETITE IS NORMAL. PT DENIES SI AT THIS TIME.
--- NOTE | 2017-01-24 18:44 | History & Physical ---
General Information and HPI MD Statement: I have seen and personally examined ELVIA URBAN and documented this H&P. The patient is a 56 year old F who presented with a patient stated chief complaint of in by ambulance for paranoia. Source of Information: patient, old records Exam Limitations: unable to give history History of Present Illness: 56-year-old white female very well-known to psychiatric inpatient department and myself. Was brought in for paranoia from the outpatient department patient comes in with pressured speech paranoia and manic irritable and angry at times. Not compliant with her medications which he believes people are breaking into her house to me she expressed she has had some falls complaining of headaches. Also complained of some shortness of breath when she came into the emergency room patient needs help and is admitted Allergies/Medications Allergies: Coded Allergies: trazodone (Severe, ANAPHYLAXIS 10/27/15) lamotrigine (From LAMICTAL) (Mild, RASH 10/27/15) gluten (i will per pt 12/10/16) olanzapine (From ZYPREXA) (ANAPHYLAXIS 01/20/17) divalproex sodium (HAIR LOSS AND EXTREME HUNGER & IMEDIATE WEIGHT GAIN PER PT ) haloperidol (LOCKED JAW 10/27/15) Home Med list Albuterol Sulfate (Proair Hfa) 90 MCG HFA.AER.AD 2 PUF INH Q4 PRN SHORTNESS OF BREATH (Reported) Benztropine Mesylate 0.5 MG TABLET 0.5 MG PO BID MUSCLE STIFFNESS (Reported) Calcium/Vitamin D (Calcium + D) 600 MG/200 IU TAB 1 TAB PO DAILY SUPPLEMENT ( Reported) Docusate Sodium (Colace) 100 MG CAPSULE 1 CAP PO BID CONSTIPATION (Reported) Lactobac Cmb #3/Fos/Pantethine (Probiotic & Acidophilus Cap) 300MM-250 CAPSULE 1 CAP PO 1730 GI SUPPORT TAKE 1 CAP PO BEFORE DINNER. Levothyroxine Sodium (Synthroid) 88 MCG TABLET 1 TAB PO DAILY AC HYPOTHYROID (Reported) [place] Carbonate 150 MG CAPSULE 450 MG PO QAM MOOD STABILIZATION TAKE 1 CAP (150MG) PO + 1 CAP (300MG) QAM (FOR A TOTAL OF 450MG). [place] Carbonate 300 MG CAPSULE 600 MG PO 2100 MOOD STABILIZATION TAKE 2 CAPS (600MG) PO EVERY NIGHT. Nicotine (Nicotine Patch) 7 MG/24 HOUR PATCH.TD24 7 MG TOP DAILY TOBACCO CESSATION APPLY 1 PATCH TOPICALLY QAM AND REMOVE BEFORE HS. Risperidone (Risperdal) 4 MG TABLET 1 TAB PO QHS clear thoughts Take 1 tab (4mg) po QHS. Risperidone (Risperdal) 1 MG TABLET 1 MG PO QAM clear thoughts Take 1 tab po QAM. Vitamin B Complex 1 CAP CAP 1 CAP PO DAILY SUPPLEMENT (Reported) Compliance With Home Meds: POOR Past History Travel History Traveled to [place] past 21 day No Medical History Neurological: SCIATICA NECK NERVE DAMAGE EENT: allergies Cardiovascular: NONE Respiratory: COPD Gastrointestinal: DIVERTICULOSIS GASTRITIS Gastritis Hepatic: NONE Renal: NONE Musculoskeletal: OSTEOPENIA, STRAINED LUMB Psychiatric: anxiety, bipolar disease, depression, ALCOHOL ABUSE Endocrine: hypothyroidism, HYPOGLYCEMIA Blood Disorders: NONE Cancer(s): NONE FLAT LOCKER/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: CYST ON OVARIEES History of MRSA: Yes History of VRE: No History of CDIFF: No Isolation History: Standard Tetanus Vaccine: 06/27/13 Surgical History Surgical History: non-contributory Past Family/Social History Family History Relations & Conditions if any FATHER FH: heart failure MOTHER FH: leukemia Psychosocial History Where do you live? Home ETOH Use: denies use Illicit Drug Use: denies illicit drug use Review of Systems Review of Systems Constitutional: Reports: see HPI. Exam & Diagnostic Data Last 24 Hrs of Vital Signs/I&O Vital Signs Date Time Temp Pulse Resp B/P B/P Pulse O2 O2 Flow FiO2 Mean Ox Delivery Rate 01/24 1556 91 105/69 01/24 1218 80 112/72 01/24 0738 97.5 84 105/62 01/23 1942 98.3 89 121/56 Intake & Output 01/24 1600 01/24 0800 01/24 0000 Intake Total Output Total Balance Patient 151 lb Weight Physical Exam General Appearance Alert, Oriented X3 Skin No Rashes, No Breakdown HEENT PERRLA, EOMI Neck Supple, No JVD, No thryomegaly Lymphatic Axillary nl, Cervical nl Cardiovascular Regular Rate Lungs Clear to Auscultation, Normal Air Movement Abdomen Soft, No Tenderness, No Hepatospenomegaly Neurological Exam Findings: Normal Gait, Normal Speech, Strength at 5/5 X4 Ext, Normal Tone, Sensation Intact, Cranial Nerves 3-12 NL, Reflexes 2+ Cranial Nerves II through XII: Intact Extremities No Edema, Normal Pulses Vascular Normal Pulses, Pulses Symmetrical Assessment/Plan As Ranked By This Provider Problem List: 1. Paranoia 2. Psychosis 3. Marijuana use 4. Sofia 5. Headache Miscellaneous Miscellaneous Documentation Attending Case Discussed With: GUERDA CAMPOS,FRANCESCO Lozano Primary Care Physician: TIA WILEY MD Patient sees these Specialists psychiatry Level of Patient Care: [facility] Consults Needed: Consulting Specialty: Psychiatry Consulting Physician: Francesco Bain MD Reason for Consult: paranoia
[2017-01-24 19:44] VITALS: BP 127/79
[2017-01-24 20:16] VITALS: BP 127/79
--- NOTE | 2017-01-25 05:42 | NUR ---
SLEPT WELL AWAKE FOR MAALOX 30ML PO THAN BACK TO SLEEP.
[2017-01-25 07:37] VITALS: BP 108/56
--- NOTE | 2017-01-25 09:20 | CT SCAN REPORT ---
EXAMINATION: CT HEAD WITHOUT CONTRAST CLINICAL INFORMATION: Dizziness and falls. COMPARISON: None TECHNIQUE: Contiguous axial imaging was performed from the skull base to vertex without intravenous administration of contrast. DLP: 620 mGy-cm FINDINGS: The brain parenchyma has normal attenuation with well-preserved peterson-white matter differentiation. No evidence of intracranial hemorrhage, major vascular territory infarction, extra-axial fluid collection, mass or midline shift. The ventricles, sulci and basilar cisterns are unremarkable. The calvarium is intact and the mastoid air cells and middle ear cavities are well aerated. There is a small, 0.3 cm mucous retention cyst or polyp of the right sphenoid sinus. The visualized portions of the orbits and globes are normal. The resident care technician image shows normal height and alignment of the cervical vertebra as seen to the C6 level. No prevertebral soft tissue swelling. IMPRESSION: No acute intracranial pathology.
[2017-01-25 12:20] VITALS: BP 112/59
--- NOTE | 2017-01-25 14:10 | CP SOUTH PROGRESS NOTE PSYCH ---
See Addendum Psych (Inpt) Progress Note Progress Note Include the following elements, when applicable: Involvement in the active treatment of the patient with behavioral observations of the patient and the patient's response to the treatment. Review of the ongoing treatment process in the context of the treatment plan. Indication of how multi-disciplinary staff members are carrying out the treatment plan. Plans for future interventions and recommendations for revision of the treatment plan. Liaison with other physicians/providers. Progress Note: I discussed this patient's progress to date, current mental status, treatment process in the context of the treatment plan, and discharge planning with staff/ team in the daily morning inpatient team meeting. I also met with the patient myself in individual session. Current Medications Sig/Gregg Start time Last Medication Dose Route Stop Time Status Admin Acetaminophen 650 MG Q4P PRN 01/21 2000 AC 01/25 PO 1330 Al Hydroxide/Mg 30 ML .STK-MED ONE 01/25 0324 DC Hydroxide PO 01/25 0325 Al Hydroxide/Mg 30 ML ONCE ONE 01/25 0315 DC 01/25 Hydroxide PO 01/25 0316 0315 Albuterol Sulfate 2 PUF FOUR TIMES A DAY PRN 01/20 2300 AC 01/24 INH 0752 Benztropine Mesylate 0.5 MG BID 01/23 2300 AC 01/25 PO 0824 Docusate Sodium 100 MG DAILY 01/24 1021 AC 01/25 PO 0824 Lactobacillus 1 CAP DAILY 01/23 2300 AC 01/25 Acidophilus PO 0824 Levothyroxine Sodium 0.088 MG DAILY AC 01/21 0700 AC 01/25 PO 0619 Lidocaine 1 PAT DAILY 01/20 1959 AC 01/25 EXT 0823 [place] Carbonate 600 MG 2100 01/24 2100 AC 01/24 PO 2205 [place] Carbonate 300 MG QAM 01/24 1000 AC 01/25 PO 0824 [place] Carbonate 150 MG DAILY 01/21 1000 AC 01/25 PO 0824 Lorazepam 1 MG Q6-PRN PRN 01/25 0815 AC PO Lorazepam 1 MG Q8P PRN 01/24 1115 DC PO Magnesium Hydroxide 30 ML AT BEDTIME PRN 01/24 1030 AC PO Melatonin 5 MG AT BEDTIME 01/21 2200 AC 01/24 PO 2206 Nicotine 7 MG DAILY 01/22 1515 AC 01/25 TOP 0823 Risperidone 3 MG AT BEDTIME 01/25 2200 AC PO Risperidone 2 MG AT BEDTIME 01/24 2200 DC 01/24 PO 2206 Risperidone 1 MG Q6-PRN PRN 01/24 1130 AC PO Risperidone 1 MG QAM 01/24 1000 AC 01/25 PO 0824 Vital Signs Date Time Temp Pulse Resp B/P B/P Pulse O2 O2 Flow FiO2 Mean Ox Delivery Rate 01/25 1220 77 112/59 01/25 0829 Room Air Room Air 01/25 0737 98.0 85 108/56 01/25 2016 97.7 99 127/79 01/24 1944 97.7 99 127/79 01/24 1556 91 105/69 Laboratory Tests 01/25/17 0614: TSH 0.633 A: Chart, progress notes, labs, vital signs and medication list were reviewed. Rpt TSH within normal limits. Vital signs within normal limits. Reviewed patient's tx progress to date with nursing staff. Patient was described as showing improved behavioral and physical control, occasionally needing redirection for verbal loudness and agression however has been redirectable. Today, she has shown good behavioral control overall, is attending groups, adherent with scheduled medications. She has not required any prns for agitation. No reports of SI, HI, AVH. Reviewed with nursing staff and Carolann Marroquin, [facility] clinical nursing assistant. Tx team feels that patient no longer requires 1:1 observation given improved behavioral control and mood. Met with the patient individually with afternoon. She presented in good spirits. Calm and cooperatively. No psychomotor retardation or agitation. Speech normal in rate, tone, and volume. Mood, "not bad." Eye contact appropriate. Appeared well groomed. Stated her appetite is "good." Reported sleeping adequately. Stated her energy level is normal. She offered occasional somatic complaints. Rated anxiety a 2/10 (10 being the worst). Rated depression a 0/10 (10 being the worst). Expressed that she is still upset with the IOP [employer] who sent her to the emergency department. Denied feeling hopeless, helpless, worthless or guilty. Denied suicidal and homicidal ideation, plans and intent. Deneid auditory and visual hallucinations. There was no evidence of diana delusions or paranoia. Thought process linear, goal directed to return home, re-establish VNS services and restart [facility] IOP. Stated she had positive visits from her sister Rachel and her qrtzxrm-sy-mks Mckay, last night. She was open to having a family meeting with them on the unit. Patient reported tolerating restarted Risperdal well, denied untoward effects. No evidence of b/l ankle edema. Patient agreeable to continue taking. Pt with history of Bipolar disorder who presented on PEC for paranoia, chelly and delusions, making moderate progress, showing improved mood, behavioral control and thought process upon restarting medications. Continues to require inpatient hospitalization for further monitoring and stabilization. P: -cont. monitoring for safety, mood and psychosis. -increase Risperdal 2mg QHS to 3mg QHS. Cont. Risperdal 1mg QAM. -arrange family meeting with patient's sister and pbqwzpp-ve-ehl. -work on dispo to Dual IOP/[facility]NS. -d/c 1:1 sitter.
--- NOTE | 2017-01-25 14:25 | NUR ---
PT HAS BEEN COMPLIANT AND COOPERATIVE WITH UNIT RULES. PT IS OUT IN THE COMMUNITY ITNERACTING WELL WITH STAFF AND PEERS. PT STILL MONITORED ON 1:1. PT MOOD IS STABLE WITH FULL RANGE TO BRIGHT AFFECT. PT IS INTERACTING WELL WITH OTHERS AND NO BEHAVIORAL PROBLEMS. PT DENIES SI THOUGHTS.
--- NOTE | 2017-01-25 14:28 | SOCIAL WORKER PROG NOTE PSYCH ---
Social Work Progress Note Progress Note Pt can begin [facility]. Fax w10 . Upon discharge they will begin services that day.
--- NOTE | 2017-01-25 14:47 | SOCIAL WORKER PROG NOTE PSYCH ---
Social Work Progress Note Progress Note Pt is oriented, alert, cooperative and in an overall good stable mood. She reported having a positive visit from her sister and brother in law, and feels like that has been helpful. She reports she would like VNS restarted so she can focus and try to get organized without having to worry about her med management atleast for a little while upon discharge. She states she would "feel safe". Pt wants to declutter her home, stating "when my thoughts are racing, and my home is cluttered I don't feel well". She states she is going to return to IOP at and become more involved in AA as she has had a history of being very active in the recovery programs.
--- NOTE | 2017-01-25 14:51 | NUR ---
PT SEEN BY AIME AND IS NOW OFF OF ONE TO ONE STATUS. SHE IS CALM AND COOPERATIVE AND APPROPRIATE IN HER BEHAVIOR AND CONVERSATION
[2017-01-25 15:50] VITALS: BP 102/50
--- NOTE | 2017-01-25 18:33 | NUR ---
PT IS CALM, COOPERATIVE WITH STAFF AND PEERS, AND COMPLIANT WITH UNIT RULES. OFTEN IN [place], INTERACTING WELL WITH OTHERS. MOOD IS STABLE, AFFECT APPEARS BRIGHT TO FULL RANGE, COMMUNICATIONIS ORGANIZED AND APPEARS NORMAL IN ALL RESPECTS, AND APPETITE IS NORMAL. PT DENIES SI AT THIS TIME.
[2017-01-25 19:48] VITALS: BP 110/62
--- NOTE | 2017-01-26 07:13 | NUR ---
PT IN DECENT BEHAVIORAL CONTROL. PT UP X 2 TO TOILET IN THE NIGHT. PT AROSE AT 0530 WHEN B-1 BEGAN TO HOLLER. PT WITH BOUNDARY ISSUES. PT ON A PEC.
[2017-01-26 08:02] VITALS: BP 98/63
--- NOTE | 2017-01-26 08:36 | CP SOUTH PROGRESS NOTE PSYCH ---
Psych (Inpt) Progress Note Progress Note Include the following elements, when applicable: Involvement in the active treatment of the patient with behavioral observations of the patient and the patient's response to the treatment. Review of the ongoing treatment process in the context of the treatment plan. Indication of how multi-disciplinary staff members are carrying out the treatment plan. Plans for future interventions and recommendations for revision of the treatment plan. Liaison with other physicians/providers. Progress Note: I discussed this patient's progress to date, current mental status, treatment process in the context of the treatment plan, and discharge planning with staff/ team in the daily morning inpatient team meeting. I also met with the patient myself in individual session. Current Medications Sig/Gregg Start time Last Medication Dose Route Stop Time Status Admin Acetaminophen 650 MG .STK-MED ONE 01/25 1331 DC PO 01/25 1332 Acetaminophen 650 MG Q4P PRN 01/20 2000 AC 01/25 PO 1330 Al Hydroxide/Mg 30 ML .STK-MED ONE 01/25 2303 DC Hydroxide PO 01/25 2304 Al Hydroxide/Mg 30 ML Q4-6 PRN PRN 01/25 2300 AC 01/25 Hydroxide PO 2302 Albuterol Sulfate 2 PUF FOUR TIMES A DAY PRN 01/20 2300 AC 01/24 INH 0752 Benztropine Mesylate 0.5 MG BID 01/23 2300 AC 01/25 PO 2116 Docusate Sodium 100 MG DAILY 01/24 1021 AC 01/25 PO 0824 Lactobacillus 1 CAP DAILY 01/23 2300 AC 01/25 Acidophilus PO 0824 Levothyroxine Sodium 0.088 MG DAILY AC 01/21 0700 AC 01/26 PO 0557 Lidocaine 1 PAT DAILY 01/20 1959 AC 01/25 EXT 0823 [place] Carbonate 600 MG 2100 01/24 2100 AC 01/25 PO 2023 [place] Carbonate 300 MG QAM 01/24 1000 AC 01/25 PO 0824 [place] Carbonate 150 MG DAILY 01/21 1000 AC 01/25 PO 0824 Lorazepam 1 MG Q6-PRN PRN 01/25 0815 AC PO Magnesium Hydroxide 30 ML AT BEDTIME PRN 01/24 1030 AC PO Melatonin 5 MG AT BEDTIME 01/21 2200 AC 01/25 PO 2116 Nicotine 7 MG DAILY 01/22 1515 AC 01/25 TOP 0823 Risperidone 3 MG AT BEDTIME 01/25 2200 AC 01/25 PO 2116 Risperidone 2 MG AT BEDTIME 01/24 2200 DC 01/24 PO 2205 Risperidone 1 MG Q6-PRN PRN 01/24 1130 AC PO Risperidone 1 MG QAM 01/24 1000 AC 01/25 PO 0824 Vital Signs Date Time Temp Pulse Resp B/P B/P Pulse O2 O2 Flow FiO2 Mean Ox Delivery Rate 01/26 0802 97.4 88 98/63 01/25 1948 98.9 75 110/62 01/25 1550 73 102/50 01/25 1220 77 112/59 A: Chart, progress notes, labs, vital signs and medication list were reviewed. Vital signs within normal limits. Met with the patient individually this morning. Presents alert, oriented x 3. Well-groomed, wearing make-up appropriately, dressed casually and comfortably. Describes mood a "fine." Affect full-range, appropriate, non-labile. Speech mildly hyperverbal, non-pressured. Offers no complaints today. No somatic reports. Shares that she will need to set boundaries from ex-friend Fito post- discharge and keep a distance from him. Expresses concern about who will give her rides to and from [facility]. States that her sister or skslgnh-gu-yxu may be able to assist with transportation. Patient willing to utilize [employer] and states she has in past. Requests assistance setting up [employer] service. Rates anxiety a 2/10 (10 being the worst). Reports depression a 2/10 (10 being the worst). Attributes low anxiety/depression to being here and the loud commotion on unit. States sleeping "ok" last night with a few brief awakenings overnight due to a loud/disruptive peer. She denies active and passive suicidal ideation, plans, intent. Denies homicidal ideation. Denies auditory and visual hallucinations. No evidence of paranoia or delusions. No evidence of overt chelly. Thought process linear, goal-directed. Cognition grossly intact. Insight and judgement slowly improving. Patient reports tolerating increase in Risperdal well, denies untoward effects. Agreeable to continue taking. No evidence of b/l ankle swelling. Patient declined switch to Risperdal Consta RHODES given hx of med non-adherence. Pt with Bipolar disorder, on PEC for recent paranoia, chelly and delusions; continues to make moderate progress. Mood and thought process improving since restarting medications. Continues to require inpatient hospitalization for further medication monitoring. P: -cont. monitoring on unit for safety and SI. -Cont. current medication regimen. Li level ordered for tomorrow. -Arrange meeting/phone conference with patient's sister/cjeaqxy-sk-xct. -confirm VNS plan for post-discharge. -likely discharge tomorrow w/ [facility] IOP f/u if pt remains stable.
[2017-01-26 12:12] VITALS: BP 119/70
--- NOTE | 2017-01-26 12:56 | NUR ---
PT IS STABLE WITH FULL RANGE OF AFFECT, BRIGHT. CALM, COMPLIANT AND COOPERATIVE. PT HAS BEEN HELPING OUT WITH PEERS AND IS VERY PLEASANT AT THIS MOMENT. VERY APPROPRIATE TO THE UNIT. PT HAS BEEN ATTENDING GROUPS ALL MORNING. ATE BREAKFAST AND LUNCH. VS ARE STABLE AND DENIES ANY SI/HI TO THIS MHW.
--- NOTE | 2017-01-26 12:59 | SOCIAL WORKER PROG NOTE PSYCH ---
Social Work Progress Note Progress Note ELVIA URBAN [id number] 1960 ELVIA URBAN [id number] Pended Authorization # Client Authorization # Type of Request [id number] CONCURRENT Date of Admission/ Start of Services Requested From Submission Date 01/23/2017 01/26/2017 01/26/2017
--- NOTE | 2017-01-26 13:01 | SOCIAL WORKER PROG NOTE PSYCH ---
Social Work Progress Note Progress Note Intake IOP set up at 01/27/17 at 12:45pm. [facility] will begin the day of discharge.
--- NOTE | 2017-01-26 15:13 | SOCIAL WORKER PROG NOTE PSYCH ---
Social Work Progress Note Progress Note Pt was in good spirirts focused, and feeling good about herself and family dynamics that have improved. SHe spoke a lot about her relationship with her Father, and how [facility] she appreciates him, and feels good that she can attempt to manage things at home to make room for him if needed. She feels her sister is also a support. Pt is doing well today.
[2017-01-26 16:04] VITALS: BP 141/78
--- NOTE | 2017-01-26 17:15 | SOCIAL WORKER TX PLAN PSYCH ---
Treatment Plan - Please Document: - Evidence that there is ongoing collaboration between - the patient and the interdisciplinary team, - including the patient's active participation and - responsibility for engaging in the treatment regimen, - and that the treatment plan is individualized and - relevant to the patient's conditions. - Treatment plan should reflect documentation indicating - that all active therapeutic efforts are included. Strengths/Capabilities: The patient does appear to have supportive family that are invovled in her life. Physical Limitations (Interventions): None identified Patient Identified Trmt Goals: To go home, and take my medications Discharge Plan: IOP Attend AA/NA meetings Problem/Goals #1 Problem #1: Manic Episode Goal (Short Term): Safe stay on unit. Identify 1-2 triggers to worsening symoptoms (substance use, non-compliance with medications). Verbalize insight into ways to prevent anohter episode/relapse. Goal (Piano Accompanist): Maintain stable mood, adhere to medications and follow-up treatment. Interventions: individual therapy daily, family therapy, groups daily, MD prescriber session daily Modalities: CBT, DBT and strengths based treatment, Problem/Goals #2 Problem #2: Cannibis Abuse Goal (Short Term): Identify 1-2 ways to cope with stressors without drug use. Attend all SA groups on the unit. Vebalize increased insight into drug use. Goal (Group Home): Verbalize insight into relapse with Cannibis and consider abstaining from use. Interventions: individual therapy daily, family therapy, groups daily, MD prescriber session daily Modalities: CBT, DBT and strengths based treatment, DSM5/PS Stressors/Medical Prob Diagnosis' (DSM 5, Stressors, Medical): Bipolar Disorder, Unspecified F31.9 Current GAF: 25 Treatment Team - Responsibilities of members of the treatment team include: - Medication Management- MD or GREASE CUP FILLER - Medication Administration and Monitoring- Nurse - Group Therapy- Occupational Therapist - 1:1 Therapy,Disch Planning,family involvement-Writing Tutor
--- NOTE | 2017-01-26 18:14 | NUR ---
PT IS CALM, COOPERATIVE WITH STAFF AND PEERS, AND COMPLIANT WITH UNIT RULES. OFTEN IN [place], INTERACTING WELL WITH OTHERS. MOOD IS STABLE, AFFECT APPEARS BRIGHT TO FULL RANGE, COMMUNICATION IS ORGANIZED AND APPEARS NORMAL IN ALL RESPECTS, AND APPETITE IS NORMAL. PT DENIES SI AT THIS TIME.
[2017-01-26 20:07] VITALS: BP 108/67
--- NOTE | 2017-01-27 06:34 | NUR ---
PT IN DECENT BEHAVIORAL CONTROL. PT PERSISTS WITH POOR BOUNDARIES. PT WITH PROBABLE DC ON MONDAY. PT ON A PEC.
--- NOTE | 2017-01-27 08:01 | CP SOUTH PROGRESS NOTE PSYCH ---
See Addendum Psych (Inpt) Progress Note Progress Note Include the following elements, when applicable: Involvement in the active treatment of the patient with behavioral observations of the patient and the patient's response to the treatment. Review of the ongoing treatment process in the context of the treatment plan. Indication of how multi-disciplinary staff members are carrying out the treatment plan. Plans for future interventions and recommendations for revision of the treatment plan. Liaison with other physicians/providers. Progress Note: I discussed this patient's progress to date, current mental status, treatment process in the context of the treatment plan, and discharge planning with staff/ team in the daily morning inpatient team meeting. I also met with the patient myself in individual session. Current Medications Sig/Gregg Start time Last Medication Dose Route Stop Time Status Admin Acetaminophen 650 MG .STK-MED ONE 01/26 1950 DC PO 01/26 1951 Acetaminophen 650 MG Q4P PRN 01/21 2000 AC 01/26 PO 1949 Al Hydroxide/Mg 30 ML .STK-MED ONE 01/26 2031 DC Hydroxide PO 01/27 2032 Al Hydroxide/Mg 30 ML Q4-6 PRN PRN 01/25 230 AC 01/26 Hydroxide PO 2030 Albuterol Sulfate 2 PUF FOUR TIMES A DAY PRN 01/20 2300 AC 01/24 INH 0752 Benztropine Mesylate 0.5 MG BID 01/23 230 AC 01/26 PO 2056 Docusate Sodium 100 MG DAILY 01/24 1021 AC 01/26 PO 0839 Lactobacillus 1 CAP DAILY 01/23 2300 AC 01/26 Acidophilus PO 0840 Levothyroxine Sodium 0.088 MG DAILY AC 01/21 0700 AC 01/27 PO 0637 Lidocaine 1 PAT DAILY 01/20 1959 AC 01/26 EXT 0839 [place] Carbonate 600 MG 2100 01/24 2100 AC 01/26 PO 2057 [place] Carbonate 300 MG QAM 01/24 1000 AC 01/26 PO 1318 [place] Carbonate 150 MG DAILY 01/21 1000 AC 01/26 PO 0839 Lorazepam 1 MG Q6-PRN PRN 01/25 0815 AC 01/26 PO 1950 Magnesium Hydroxide 30 ML AT BEDTIME PRN 01/24 1030 AC PO Melatonin 5 MG AT BEDTIME 01/21 2200 AC 01/26 PO 2057 Nicotine 7 MG DAILY 01/22 1515 AC 01/26 TOP 0840 Risperidone 3 MG AT BEDTIME 01/25 2200 AC 01/26 PO 7 Risperidone 1 MG Q6-PRN PRN 01/24 1130 AC PO Risperidone 1 MG QAM 01/24 1000 AC 01/26 PO 0840 Vital Signs Date Time Temp Pulse Resp B/P B/P Pulse O2 O2 Flow FiO2 Mean Ox Delivery Rate 01/26 2007 98.4 89 108/67 01/26 1604 86 141/78 01/26 1212 85 119/70 01/26 0802 97.4 88 98/63 Laboratory Tests 01/27 0625 Toxicology [place] (0.6 - 1.2 mmol/L) 0.7 A: Chart, progress notes, labs, vital signs and medication list were reviewed. Vital signs within normal limits. Li = 0.7. Met with the patient this morning on the date of discharge. She presented A&Ox3. Speech was normal in rate, tone and volume. Mood, "really good." Stated she is excited to return to [facility] and that she will be able to visit her father on Father 's Day this Monday. Affect was bright, full-range, appropriate, non-labile. Eye contact appropriate. Offered no complaints. No furtherance of somatic reports. Rated anxiety a 2/10 (10 being the worst) and depression a 0/10 (10 being the worst). She denied feeling hopeless, helpless,worthless and guilty. Denied active and passive suicidal ideation, plans and intent. Denied homicidal ideation. She stated and also believed she will not harm herself or others. Gave protective factors of her sister "Rachel," dggriex-nn-bua "Mckay," "my son," and "my dad of course." She denied auditory and visual hallucinations, paranoid ideation. Thought process linear, goal directed. No evidence of delusions. Patient reported tolerating medications well and denied untoward effects. She reported feeling safe and ready for discharge. A phone conference was held with the patient, her sister, Rachel, Amirah Vines, FRANCHESCA and I. P: -Discharge today into the care of sister Rachel and idyuvin-at-wjw Mckay. -F/u at [facility] for intake at 12:45PM. -Pt was advised to abstain from all substances, attend weekly AA meetings and to obtain a sponsor for support in sobriety. -[facility] scheduled for BID medication administration, intake scheduled today, 3PM. -Pt advised that in the event of an emergency to call 911/211/go to nearest emergency department. Patient verbalized understanding of all instructions. -All discharge prescriptions were e-prescribed to [facility] in [place], [place] per VNS request.
[2017-01-27 08:05] VITALS: BP 113/71
--- NOTE | 2017-01-27 08:31 | DISCHARGE SUMMARY REPORT-PSYCH ---
Visit Information Visit Dates/Diagnosis' Admission Date: 01/23/17 Discharge Date: 01/27/17 Reason for Admission: Patient was brought in by ambulance from [facility] for somatic complaints, chelly and paranoia in the context of medication non-adherence (recently self-discontinued prescribed Risperdal and concern for [place] nonadherence given subtherapeutic Li level on ED admission). She was placed on a PEC for grave disability on 01/20/17 and admitted to [facility]. Psy Discharge Primary Diag: Bipolar disorder, MRE mixed Psy Discharge Secondary Diag: PTSD, Cannabis use disorder, Alcohol use disorder, Sciatica, Diverticulitis, Osteopenia, Hypothydroidism, Ovarian cysts by history. Hospital Course Significant Lab Findings: Lab Calcium 10.2 mg/dL 01/20/17 1502 TSH 0.633 uIU/mL 01/25/17 0614 Absolute Granulocytes 8.6 /CUMM H 01/20/17 1502 Gran % 79.2 % H 01/20/17 1502 Lymphocytes % 15.7 % L 01/20/17 1502 MCH 31.3 PG H 01/20/17 1502 RBC 4.08 /CUMM L 01/20/17 1502 [place] 0.4 mmol/L L 01/20/17 1502 [place] 0.7 mmol/L 01/27/17 0625 Course Complications: None. Consultations: The patient was seen for admission history and physical by appeals nurse Dr. Enmanuel Guallpa. Please see his note for additional information. Allergies: Coded Allergies: trazodone (Severe, ANAPHYLAXIS 10/27/15) lamotrigine (From LAMICTAL) (Mild, RASH 10/27/15) gluten (i will per pt 12/10/16) olanzapine (From ZYPREXA) (ANAPHYLAXIS 01/20/17) divalproex sodium (HAIR LOSS AND EXTREME HUNGER & IMEDIATE WEIGHT GAIN PER PT ) haloperidol (LOCKED JAW 10/27/15) Hospital Course/TX Response: The patient was monitored on the unit for safety, mood and psychosis. She participated in multimodal treatments on the unit. She admitted to medication nonadherence on admission, self-discontinuing prescribed Risperdal. She claimed that she had been taking [place] as prescribed despite subtheraputic level, 0.4ug/mL, on admission to [facility]. [place] was restarted at 450mg QAM and 600mg QPM for mood stabilization. Risperdal was initially decreased due to reports of bilateral ankle swelling which was not present on admission. She refused to trial alternative antipsychotics. She was agreeabe to restart Risperdal at a lower dose than prescribed outpatient, while monitoring for any swelling in her ankles. None was noted, therefore Risperdal was further increased to 1mg QAM and 3mg QPM, for paranoia/clear thoughts. Patient tolerated medications well and denied untoward medication effects. During the hospital course, the patient's mood and affect improved. She consistently denied suicidal and homicidal ideation, auditory and visual hallucinations, paranoia and delusions. She was adherent with prescribed medications. A family phone conference was held with the patient, her sister, Rachel, Amirah Vines, FRANCHESCA, and Lakeshia. The patient's treatment progress to date, medication regimen, level of safety and discharge plan were reviewed and discussed. The patient's sister, Rachel, did not express any safety concerns regarding the patient's discharge or discharge plan. She reported she had visited the patient this week on unit, has been speaking to her regularly on the phone; she feels the patient is at her baseline. Both the patient and her sister were in favor of discharge plan for patient to follow up with [facility] and visiting nurse services. On the date of discharge, 01/27/17, the patient presented A&Ox3. Speech was normal in rate, tone and volume. Mood, "really good." Stated she is excited to return to [facility] and that she will be able to visit her father on Father's Day this Monday. Affect was bright, full-range, appropriate, non-labile. Eye contact appropriate. Offered no complaints. No furtherance of somatic reports. Rated anxiety a 2/10 (10 being the worst) and depression a 0/10 (10 being the worst). She denied feeling hopeless, helpless,worthless and guilty. Denied active and passive suicidal ideation, plans and intent. Denied homicidal ideation. She stated and also believed she will not harm herself or others. Gave protective factors of her sister "Rachel," [id number] "Bill," "my son," and "my dad of course." She denied auditory and visual hallucinations, paranoid ideation. Thought process linear, goal directed. No evidence of delusions. Patient reported tolerating medications well and denied untoward effects. She reported feeling safe and ready for discharge. Discharge HBIPS - Tobacco Use Treatment Offered Post DC Medications Offered: Script Given-See Med List Post DC Tobacco Treatment Plan: Refused Tobacco Tx Pgm - EtOH/Drug Use D/O Treatment Offered Post DC Medications Offered: Ref Med EtOH/Drug Use D/O Post DC EtOH/SubAbuse TX Plan: [facility] SubAbuse/Dual IOP Program Appt Date: 01/27/17 Program Appt Time: 1245 Metabolic Screening - Screen if on a Neuroleptic Medication - Metabolic screening should include: - Blood Pressure, BMI, Glucose or Hgb A1c, & a - Lipid profile from within the past 365 days. Metabolic Screening () Not Applicable, patient not on a neuroleptic. OR ([X]) Patient on a neuroleptic(s) . Enter below results for Glucose or Hemoglobin A1C, and lipid panel if obtained during the last 365 days. BMI: 25.200 Blood Pressure: 113/71 Laboratory Results (If applicable): Lab Cholesterol 205 MG/DL H 01/12/17 0747 Cholesterol/HDL Ratio 2 % 01/12/17 0747 HDL Cholesterol 91 mg/dL H 01/12/17 0747 Hemoglobin A1c 5.1 % 12/11/16 0620 LDL Cholesterol, Calc 98 mg/dL 01/12/17 0747 Triglycerides 83 mg/dL 01/12/17 0747 Discharge Instructions General Discharge Information Discharge Medications: Discharge Medications- (Dose, route, freq, indication): START taking these NEW Home Medications: Risperidone Dose: ORAL, Every night for Qty: 14 Sent to (Risperdal) 3 MG 1 Tablet clear thoughts Refills: 0 Pharm 1 TABLET Take 1 tab po QPM. Docusate Sodium Dose: ORAL, DAILY for Qty: 14 Sent to (Docusate Sodium) 100 Milligram constipation Refills: 0 Pharm 1 100 MG CAPSULE Take 1 tab po daily. Lactobac Cmb #3/Fos/ Dose: ORAL, DAILY for GI Qty: 14 Sent to Pantethine 1 Capsule support Refills: 0 Pharm 1 (Probiotic & Take 1 tab po daily. Acidophilus Cap) 300MM-250 CAPSULE Lidocaine (Lidoderm) Dose: ON SKIN, DAILY for pain Qty: 14 Sent to 5 % ADH..PATCH 1 Patch Apply 1 patch ext daily Refills: 0 Pharm 1 to affected area. Keep on for 12 hours - keep off for 12 hours. Melatonin Dose: ORAL, AT BEDTIME for Qty: 14 Sent to (Melatonin) 5 MG 5 Milligram insomnia Refills: 0 Pharm 1 TABLET Take 1 tab po QHS. CONTINUE taking these Home Medications: Vitamin B Complex Dose: ORAL, DAILY for (Vitamin B Complex) 1 1 Capsule SUPPLEMENT CAP CAP PER PT Calcium/Vitamin D Dose: ORAL, DAILY for (Calcium + D) 600 MG/200 1 Tablet SUPPLEMENT IU TAB PER PT Albuterol Sulfate Dose: Inhale through mouth, Renewed Sent (Proair Hfa) 90 MCG 2 Puff Every 4 hours as needed to Pharm 1 HFA.AER.AD for SHORTNESS OF BREATH Take 2 puffs inhalation Q4H prn for shortness of breath. Nicotine (Nicotine Dose: On the skin, DAILY for Renewed Sent Patch) 7 MG/24 HOUR 7 Milligram TOBACCO CESSATION to Pharm 1 PATCH.TD24 APPLY 1 PATCH TOPICALLY QAM AND REMOVE BEFORE HS. Risperidone (Risperdal) Dose: ORAL, Every Morning for Renewed Sent 1 MG TABLET 1 Milligram clear thoughts to Pharm 1 Take 1 tab po QAM. [place] Carbonate Dose: ORAL, 2100 for MOOD Renewed Sent ([place] Carbonate) 300 600 Milligram STABILIZATION to Pharm 1 MG CAPSULE TAKE 2 CAPS (600MG) PO EVERY NIGHT. [place] Carbonate Dose: ORAL, Every Morning for Renewed Sent ([place] Carbonate) 150 450 Milligram MOOD STABILIZATION to Pharm 1 MG CAPSULE TAKE 1 CAP (150MG) PO + 1 CAP (300MG) QAM (FOR A TOTAL OF 450MG). Benztropine Mesylate Dose: ORAL, TWICE DAILY for Renewed Sent (Benztropine Mesylate) 0.5 Milligram MUSCLE STIFFNESS to Pharm 1 0.5 MG TABLET Take 1 tab po BID. Levothyroxine Sodium Dose: ORAL, DAILY BEFORE Renewed Sent (Synthroid) 88 MCG 1 Tablet BREAKFAST for to Pharm 1 TABLET HYPOTHYROID Take 1 tab po QAM AC. STOP taking these DISCONTINUED Home Medications: Lactobac Cmb #3/Fos/Pantethine Dose: ORAL, 1730 for GI SUPPORT (Probiotic & Acidophilus Cap) 1 Capsule TAKE 1 CAP PO BEFORE DINNER. 300MM-250 CAPSULE Reason Stopped: Changed Dose Risperidone (Risperdal) 4 MG Dose: ORAL, TAKE AT BEDTIME for clear TABLET 1 Tablet thoughts Take 1 tab (4mg) po QHS. Reason Stopped: Changed Dose Docusate Sodium (Colace) 100 Dose: ORAL, TWICE DAILY for MG CAPSULE 1 Capsule CONSTIPATION Reason Stopped: Changed Dose 1: [facility], [address] [place] [address] [phone] Your Preferred Pharmacy [facility] [address] [place] [address] Multiple Neuroleptics: ([X]) Not Applicable OR Document below three failed attempts at monotherapy, or a plan to taper to monotherapy, or augmentation of Clozapine. () Patient's Diet: Regular. Patient's Activity: No restrictions. DC Disposition: Patient to return to home and self-care. Recommendations: The patient was advised to please take all medications as prescribed. She was advised to abstain from all substances, attend weekly AA meetings and obtain a sponsor for support in sobriety. She was advised to follow up with scheduled IOP appointment. She was informed that visiting nurse services would begin on the evening of discharge. She was advised that in the event of an emergency to call 911/go to the nearest emergency department. The patient verbalized understanding of all instructions. Referred To: Post Discharge Referrals Provider Referral Service Date: 01/27/17 Referred To: [[facility]] Notes: [facility] [address], [place] PH#[phone] INTAKE 01/27/17 AT 12:45PM Provider Referral Service Date: 01/27/17 Referred To: [[facility]] Notes: [facility] [address] [facility] [place] [place] PH#[phone] MEDICATION ADMINISTRATION 2X DAILY EMPERATRIZ Cao RN - INTAKE 01/27/17 AT 3PM Copies To: [facility]; [facility]
--- NOTE | 2017-01-27 09:12 | SOCIAL WORKER PROG NOTE PSYCH ---
Social Work Progress Note Progress Note Discussed Rose Marie in team meeting today with Cyndi Sifuentes APRN and Dr. Romero and staff. Met with Rose Marie and Cyndi Sifuentes APRN as well as the medical student Qamar from [facility]. Pavan reported no SI/HI, no psychosis. Her mood is stable. Phoned her sister today for a phone conference meeting, with Rachel who expressed no concern about Rose Marie discharge today. Infact, she stated she and her visited Rose Marie recently, and thought she looked and sounded good as well. Discussed discharge planning and supports in place - vistiting nurse 2x daily. Discussed discharge planning, she plans to follow- up at [facility] program and has an intake today, 01/27/17 at 12:45pm. [facility] visiting nurse, EVAN Dean will meet with Rose Marie this afternoon 01/27/17 at 3pm. EVAN Dean at [facility] will lease picker Rose Marie's medications at [facility] this afternoon. Referral given for Smoking Cessation group at [facility] with Verenice Khalil LCSW on 02/01/17 at 4pm.
[2017-01-27] MEDS ORDERED: DOCUSATE SODIU100 M3 PO (11:22)
[2017-01-27] MEDS ORDERED: BENZTROPINE ME0.5 M1 PO (11:22)
[2017-01-27] MEDS ORDERED: MELATONIN5 M7 PO (11:22)
[2017-01-27] MEDS ORDERED: SYNTHROID88 MCG PO (11:22)
[2017-01-27] MEDS ORDERED: LITHIUM CARBON150 M1 PO (11:22)
[2017-01-27] MEDS ORDERED: LITHIUM CARBON300 M4 PO (11:22)
[2017-01-27] MEDS ORDERED: LIDODERM1 EACH EXT (11:22)
[2017-01-27] MEDS ORDERED: PROBIOTIC & AC1 EACH PO (11:22)
[2017-01-27] MEDS ORDERED: RISPERDAL1 M1 PO (11:22)
[2017-01-27] MEDS ORDERED: RISPERDAL3 M1 PO (11:22)
[2017-01-27] MEDS ORDERED: PROAIR HFA8.5 GM INH (11:22)
[2017-01-27] MEDS ORDERED: NICOTINE PATCH1 EAC1 TOP (11:22)
--- NOTE | 2017-01-27 12:21 | NUR ---
Discharge Assessment Patient to be [place] [facility] [place]u with [facility] and [place]. Patient reports no SI, sees mood as stable, future oriented, pleased with d/c plan and visiting nurse to help with med compliance.
--- NOTE | 2017-01-30 10:08 | IOP INCIDENTAL NOTE ---
IOP Incidental Note Details: This typewriter assembler spoke to Marjan who said her ride has not yet arrived to transport her to her IOP intake scheduled today at 10 am .
--- NOTE | 2017-01-30 11:17 | IOP INCIDENTAL NOTE ---
IOP Incidental Note Details: This abstract writer spoke to Marjan again. Pt will plan to come in early tomorrow morning before group for her intake eval. She denies SI/HI AVH at present. This abstract writer spoke with [facility]. Ambreen stated if pt does not show tomorrow Jeannie will go out to the home and evaluate the pt.
== END 2017-01-27 13:53 | DRG 753 ==
LOC: ERH 13:14 → ERHI 01-23 10:01 → CP SOUTH 01-23 10:01 → ENTRNSPT 01-23 16:05 → CMPTRNSPT 01-23 16:17 → CP SOUTH 01-23 16:18 → ENRESERV 01-23 16:30 → CP SOUTH 01-24 09:44 → ENPENDDIS 01-27 13:00 → CP SOUTH 01-27 13:53 → CMPTRNSPT 01-30 08:59
PROVIDERS: Emergency Medicine; ADMIT Psychiatry & Neurology Psychiatry
DX: F31.60 Bipolar disorder, current episode mixed, unspecified (principal); F43.10 Post-traumatic stress disorder, unspecified; F12.90 Cannabis use, unspecified, uncomplicated; Z72.89 Other problems related to lifestyle; M54.30 Sciatica, unspecified side; M85.80 Other specified disorders of bone density and structure, unspecified site; E03.9 Hypothyroidism, unspecified
CPT/HCPCS: 36415; 80307; G0463; G0480; J3490